=== PATIENT | male | born 1935 | race Caucasian/White ===

== ENCOUNTER 2018-02-21 05:53 | Day surgery (SDC) | payer OTHER ==
--- NOTE | 2018-02-14 09:56 | RAD REPORT ---
EXAM DESCRIPTION: RAD - Chest Pa And Lat (2 Views) - 02/14/2018 9:48 am CLINICAL HISTORY: preop Chest pain. COMPARISON: Abdomen 1 View (KUB) dated 05/22/2017; Abdomen 1 View (KUB) dated 05/09/2017; Abdomen 1 V iew (KUB) dated 04/10/2017; Abdomen 1 View (KUB) dated 01/19/2017 FINDINGS: The lungs are clear. The heart is upper limit of normal in size. No displaced fractures. A ortic atherosclerosis. IMPRESSION: No acute or concerning finding suspected.
[2018-02-14 10:19] LABS: Absolute Lymphocytes (CBC) 2.1 K/uL (0.7-4.9); Absolute Monocytes 0.7 K/uL (0.1-1.3); Absolute Neutrophil 4.1 K/uL (1.8-8.0); Basophils % 1.5 % (0-1.3); Eosinophils % 2.9 % (0-4.4); Hematocrit 41.8 % (39.6-49.0); Lymphocytes % 29.3 % (15.3-44.8); MCH 33.4 pg (27.0-35.0); MCV 93.3 fL (80-100); MPV 9.4 fL (7.6-11.3); Monocytes % 9.6 % (3.3-12.3); RBC Red Blood Cell Count 4.48 M/uL (4.33-5.43)
[2018-02-14 10:25] LABS: Protime INR 1.02
[2018-02-14 10:28] LABS: Potassium 4.1 mmol/L (3.5-5.1)
--- NOTE | 2018-02-14 12:09 | EKG ---
Test Date: 2018-02-14 Test Time: 09:55:32 Tobacco Sweeper: BARTOLOME MEASUREMENT RESULTS: Intervals: Rate: 56 TN: 184 QRSD: 158 QT: 462 QTc: 445 [place]: P: 54 TN: 184 QRS: 6 T: 31 INTERPRETIVE STATEMENTS: Sinus bradycardia Right bundle branch block Abnormal ECG Compared to ECG 05/05/2017 09:12:50 No significant changes Electronically Signed On 02-14-18 12:08:24 CDT by Geovani Greenfield
--- OUTSIDE RECORDS SUMMARY | 2018-02-21 05:58 | XMS REPORT ---
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
--- OUTSIDE RECORDS SUMMARY | 2018-02-21 05:58 | XMS REPORT ---
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 94935259980 25 MG/2.5GM Active 2 applications (1%) to skin in the Transdermal morning Once a day Levothyroxine [facility] 17308971749 75 MCG Orally Active 1 tablet on an Sodium Once a day empty stomach in the morning Candesartan [facility] 94924523641 16 MG Orally Active 1 tablet Cilexetil Once a day Montelukast [facility] 94667915445 10 MG Orally Active 1 tablet Sodium Once a day Zora Allergy [facility] 04860583579 180 MG Orally Active 1 tablet as Once a day needed Aspirin [address] [facility] 83291192567 81 MG Orally Active 1 tablet Once a day Results No Known Results Summary Purpose eClinicalWorks Submission
--- OUTSIDE RECORDS SUMMARY | 2018-02-21 05:58 | XMS REPORT ---
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
--- OUTSIDE RECORDS SUMMARY | 2018-02-21 05:58 | XMS REPORT ---
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
[2018-02-21] MEDS ORDERED: Ringers Lactate 1,000 ML IV ONE ×2 (06:22→07:04)
[2018-02-21] MEDS ORDERED: CEFAZOLIN/SWI 1gm 1 GM/10 ML SYR ONE ×2 (06:23→09:26)
[2018-02-21] MEDS ORDERED: ROPLVACAINE HCL 40 ML ONE (06:40)
[2018-02-21] MEDS ORDERED: MIDAZOLAM HCL 2 MG/2 ML INJ ONE (06:41)
[2018-02-21] MEDS ORDERED: DEXAMETHASONE 4 MG/ML VIAL ONE (06:41)
[2018-02-21] MEDS ORDERED: FENTANYL CITR 100 MCG/2 ML ONE (06:41)
[2018-02-21] MEDS ORDERED: EPINEPHRINE/PF 1 MG/ML AMP ONE (07:03)
[2018-02-21] MEDS ORDERED: PROPOFOL 200 MG/20 ML VIAL IV ONE (07:43)
[2018-02-21] MEDS ORDERED: LIDOCAINE 2% MPF 5 ML VIAL ONE (07:43)
[2018-02-21] MEDS ORDERED: ROCURONIUM 50 MG/5 ML VIAL IV ONE (07:43)
[2018-02-21] MEDS ORDERED: EPHEDRINE SULF 50 MG/10 ML SYR ONE (09:45)
[2018-02-21] MEDS ORDERED: Phenylephrine HCl 10 MG/ML 1 ML VIAL ONE ×2 (09:49→10:38)
[2018-02-21] MEDS ORDERED: NS 0.9% VIAL 10 ML ONE (09:50)
[2018-02-21] MEDS ORDERED: GLYCOPYRROLATE 0.2 MG/ML SYR ONE (10:38)
[2018-02-21] MEDS ORDERED: NEOSTIGMINE 1 MG/ML -5 ML SYRINGE ONE (10:38)
--- NOTE | 2018-02-21 16:39 | RAD REPORT ---
EXAM DESCRIPTION: RAD - Shoulder 1 View - 02/21/2018 11:55 am CLINICAL HISTORY: Shoulder pain, postop imaging COMPARISON: Shoulder Rt Wo Cont dated 12/07/2017 FINDINGS: Mild AC joint degenerative changes present. No fracture or dislocation is seen. Mild delto id soft tissue swelling.
--- NOTE | 2018-02-21 22:47 | OP ---
Date of Procedure: 02/21/2018 Surgeon: Fernando Briggs MD Preoperative Diagnoses: 1.Right shoulder rotator cuff tear. 2.Right shoulder impingement syndrome. Postoperative Diagnoses: 1.Right shoulder rotator cuff tear. 2.Right shoulder impingement syndrome. 3.Right shoulder superior labrum anterior and posterior tear. Procedures Performed: 1.Right shoulder arthroscopic rotator cuff repair. 2.Right shoulder arthroscopic superior labrum anterior and posterior debridement with biceps tenotom y. 3.Right shoulder arthroscopic subacromial decompression. Anesthesia: General endotracheal. Fluids: Per Anesthesia record. Estimated Blood Loss: Less than 10 cc. Complications: None. Implants: A 4.75 mm Arthrex SwiveLock. Indication For Procedure: Juan is an 82-year-old male who presented to my clinic with pain in his right shoulder, and failed conservative treatment measures including corticosteroid injections. Phys ical exam findings and MRI findings were consistent with a rotator cuff tear and impingement syndrome . I discussed with the patient at length, risks and benefits associated with operative and nonoperat alma treatment, and he expressed understanding and elected to proceed with operative treatment. Description Of Procedure: After informed consent was obtained, the patient was identified in the pre operative holding area. The right upper extremity was marked. The patient was then brought back to the PACU where he underwent an interscalene block performed by Anesthesia, which he tolerated well. He was then taken back to the operative room, transferred to the operative table in supine fashion an d placed under general endotracheal anesthesia. He was then placed in the beach chair position with the extremities well padded. The right upper extremity was then examined. The patient had full rang e of motion and no instability noted of the shoulder joint. The right upper extremity was then prepp ed and draped in usual sterile fashion. A time-out was initiated and correct patient and procedure w ere confirmed and identified. The patient did receive his preoperative prophylactic antibiotics. Vi a the posterior portal position, a spinal needle was introduced into the right glenohumeral joint, an d the shoulder was injected with 30 cc of normal saline to distend the capsule. The posterior portal was then created and the arthroscope was brought in from the posterior portal into position and a di agnostic arthroscopy was performed. Standard anterior portal was placed and a cannula was placed as well. The patient was noted to have a type 2 SLAP tear with a superior labrum elevated off the gleno id. Arthroscopic shaver was then used to debride the SLAP tear and biceps tenotomy was performed usi ng a meniscal biter. The subscapularis was evaluated and found to be intact and was able to probe. Anterior and posterior labrum were also found to be intact. There were no significant degenerative c hanges of the humeral head or the glenoid. No loose bodies found within the axillary pouch. The pat ient was noted to have some fraying on the articular surface of his supraspinatus tendon. A lateral portal was created and there was a very small tear with communication to the bursal surface, which wa s evidenced by passage of blunt obturator through the tendon. It was marked coming from the arthrosc ope. The arthroscope was brought into subacromial space. There was significant fraying of the corac oacromial ligament and inferior osteophytes centered off the undersurface of the acromion. A subacro mial bursectomy was first performed. The area that was marked prior was identified on the bursal susan face and it was debrided with a very small full-thickness tear was noted. A FiberTape suture was the n passed in an inverted mattress fashion using a scorpion suture passer and a single lateral anchor w as placed fasting the suture through the anchor for overall good fixation of the rotator cuff on the greater tuberosity. This was done after the greater tuberosity was debrided of any nonviable tissue, debrided to bleeding bony bed to aid with healing. After the anchor was placed, there was good redu ction of the tendon. Next, attention was taken to the undersurface of the acromion. A subacromial d ecompression was then performed using a radiofrequency ablator as well as an arthroscopic keo. Acro mioplasty was performed using the keo, and this smoothed out the acromion and continue to the level of the spine of the scapula. The arthroscopic instruments were then removed without complication and the wounds were then irrigated with normal saline and approximated with a 2-0 Vicryl subcutaneously and the portals were approximated using a 3-0 Monocryl. Sterile dressings were applied. The patient was placed in a shoulder immobilizer, awakened, and transferred to PACU in stable condition. Postoperative Plan: He will follow up in the clinic next week for wound check. He will be nonweight bearing, and he will follow the small rotator cuff repair protocol 2 weeks postoperatively. JULIO CESAR/ZOË Voice ID: [id number] Report ID: [id number]
== END 2018-02-21 12:10 | disposition home or self-care (01) ==
LOC: OR 05:53
PROVIDERS: ATTEND Orthopaedic Surgery Sports Medicine
PROC: 0RNJ4ZZ Release Right Shoulder Joint, Percutaneous Endoscopic Approach (ICD-10-PCS; 2018-02-21)
PROC: 0RBJ4ZZ Excision of Right Shoulder Joint, Percutaneous Endoscopic Approach (ICD-10-PCS; 2018-02-21)
PROC: 0LQ14ZZ Repair Right Shoulder Tendon, Percutaneous Endoscopic Approach (ICD-10-PCS; principal; 2018-02-21 07:30)
DX: M75.121 Complete rotator cuff tear or rupture of right shoulder, not specified as traumatic (principal); S43.431A Superior glenoid labrum lesion of right shoulder, initial encounter; M75.21 Bicipital tendinitis, right shoulder; M75.41 Impingement syndrome of right shoulder; I10 Essential (primary) hypertension; E03.9 Hypothyroidism, unspecified; Z88.2 Allergy status to sulfonamides; Z79.82 Long term (current) use of aspirin; Z80.9 Family history of malignant neoplasm, unspecified; Z83.3 Family history of diabetes mellitus
CPT/HCPCS: 29822; 29826; 29827; 36415; 71046; 73020; 80048; 85025; 85610; 85730; 93005; J0171; J0690 ×2; J2250; J2370 ×2; J2710; J2795; J3010

== ENCOUNTER 2018-03-29 08:59 | Emergency (ER) | payer OTHER ==
--- OUTSIDE RECORDS SUMMARY | 2018-03-29 09:02 | XMS REPORT ---
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 Active Medications Medication Code Code Instructions Start End Status Dosage System Date Date [place] [facility] 71779406359 7.5-325 MG Sept Active 1-2 tablets as Orally every 12, needed 4-6 hrs 2017 Movantik [facility] 24974885846 12.5 MG Orally Sept Oct Active 1 tablet in Once a day 17, 17, the morning 2017 2017 Candesartan [facility] 91206509196 16 MG Orally Active 1 tablet Cilexetil Once a day Levothyroxine [place] 71055240222 75 MCG Orally Active 1 tablet on an Sodium Once a day empty stomach in the morning Montelukast ND 60963158165 10 MG Orally Active 1 tablet Sodium Once a day Zora Allergy [facility] 49297634027 180 MG Orally Active 1 tablet as Once a day needed AndroGel [facility] 68491620591 25 MG/2.5GM Active 2 applications (1%) to skin in the Transdermal morning Once a day Aspirin 81 [facility] 53111234745 81 MG Orally Active 1 tablet Once a day Results No Known Results Summary Purpose eClinicalWorks Submission
--- OUTSIDE RECORDS SUMMARY | 2018-03-29 09:02 | XMS REPORT ---
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
--- OUTSIDE RECORDS SUMMARY | 2018-03-29 09:02 | XMS REPORT ---
:1935 Author Organization eClinicalWorks Care Team Providers Name Role Phone Briggs, Fernando Provider Role Unavailable Allergies No Known Allergies Problems Problem Type Condition Code Onset Dates Condition Status Problem Complete tear of right rotator cuff M75.121 Active Medications Medication Code System Code Instructions Start End Date Status Dosage Date [facility] 85482214549 7.5-325 MG Feb 14, Active 1-2 tablets Orally every 4-6 2017 as needed hrs Results No Known Results Summary Purpose eClinicalWorks Submission
--- OUTSIDE RECORDS SUMMARY | 2018-03-29 09:02 | XMS REPORT ---
[...] Start End Status Dosage System Date Date Zora Allergy [facility] 65630896521 180 MG Orally Active 1 tablet as Once a day needed Movantik ND 91097981388 12.5 MG Orally Sept Oct Active 1 tablet in Once a day 17, 17, the morning 2017 2017 Levothyroxine ND 72762749595 75 MCG Orally Active 1 tablet on an Sodium Once a day empty stomach in the morning Candesartan ND 33941167231 16 MG Orally Active 1 tablet Cilexetil Once a day Montelukast ND 40547215428 10 MG Orally Active 1 tablet Sodium Once a day AndroGel [facility] 43472559584 25 MG/2.5GM Active 2 applications (1%) to skin in the Transdermal morning Once a day [place] [facility] 59407020423 7.5-325 MG Sept Active 1-2 tablets as Orally every 12, needed 4-6 hrs 2017 Aspirin 81 [place] 03559494626 81 MG Orally Active 1 tablet Once a day Results Name Result Date Reference Range Unit Abnormality Flag Physical Therapy Summary Purpose eClinicalWorks Submission
--- OUTSIDE RECORDS SUMMARY | 2018-03-29 09:02 | XMS REPORT ---
[...] End Status Dosage System Date Date AndroGel [facility] 56214530300 25 MG/2.5GM Active 2 applications (1%) to skin in the Transdermal morning Once a day Levothyroxine [facility] 07375012931 75 MCG Orally Active 1 tablet on an Sodium Once a day empty stomach in the morning Candesartan [facility] 24725537897 16 MG Orally Active 1 tablet Cilexetil Once a day Montelukast [facility] 00811838936 10 MG Orally Active 1 tablet Sodium Once a day Zora Allergy [facility] 90166003672 180 MG Orally Active 1 tablet as Once a day needed Aspirin 81 [facility] 29414131746 81 MG Orally Active 1 tablet Once a day Results No Known Results Summary Purpose eClinicalWorks Submission
[2018-03-29 09:54] LABS: Absolute Monocytes 1.1 K/uL (0.1-1.3); Absolute Neutrophil 8.1 K/uL (1.8-8.0); Basophils % 0.7 % (0-1.3); Eosinophils % 1.3 % (0-4.4); Lymphocytes % 17.6 % (15.3-44.8); MCH 31.6 pg (27.0-35.0); MPV 9.2 fL (7.6-11.3); Monocytes % 9.9 % (3.3-12.3); RBC Red Blood Cell Count 4.84 M/uL (4.33-5.43)
[2018-03-29 10:00] LABS: Bilirubin Direct 0.2 mg/dL (0-0.2); Bilirubin Total 0.6 mg/dL (0.2-1.0); Protein, Total 7.9 g/dL (6.4-8.2)
[2018-03-29 10:13] LABS: Urine Blood TRACE (NEG); Urine Glucose NEGATIVE (NEG); Urine Protein NEGATIVE (NEG); Urine pH 5.5 (5.0-7.0)
[2018-03-29 10:13] LABS: Urine Bacteria NONE SEEN /HPF (NONE SEEN); Urine Culture Reflex Order NOT NEEDED
--- NOTE | 2018-03-29 11:59 | RAD REPORT ---
EXAM DESCRIPTION: CT - Chest For Pe Angio - 03/29/2018 11:41 am CLINICAL HISTORY: Chest pain, abdominal pain, shortness of breath, left-sided pain COMPARISON: Two-view chest exam February 14, 2018, lung base images from CT abdomen March 2017 TECHNIQUE: Dynamically enhanced 3 mm thick images of the chest were obtained during administration o f approximately 150mL Isovue 370 IV contrast. Coronal and oblique MIP reconstruction images were gene rated and reviewed. Exam utilizes a protocol to evaluate the pulmonary arterial tree. All CT scans are performed using dose optimization technique as appropriate and may include automated exposure control or mA/KV adjustment according to patient size. FINDINGS: No pulmonary emboli are identified. The aorta as imaged shows no acute or suspicious finding. No pericardial thickening or effusion. No focal mass or consolidation. Interstitial markings in each base are increased above the 2017 study . This is in part due to atelectasis. Minimal interstitial edema or infiltrate would be consideration . No pleural effusion or pleural thickening. Hilar granulomatous calcifications are present. No suspicious mediastinal or hilar mass. No chest wal l masses or abnormal axillary lymphadenopathy. IMPRESSION: No pulmonary emboli identified. Prominent interstitial markings in each posterior gutter new or progressive from 2017 imaging. In the acute setting this could be interstitial edema or infiltrate. Progressive fibrosis would be possible .
--- NOTE | 2018-03-29 12:04 | RAD REPORT ---
EXAM DESCRIPTION: CT - Abdomen Pelvis W Contrast - 03/29/2018 11:39 am CLINICAL HISTORY: Abdominal pain, left-sided abdominal and pelvic pain, no dysuria symptoms COMPARISON: CT imaging October 2014, CT imaging March 2017 TECHNIQUE: Biphasic, helical CT imaging of the abdomen and pelvis was performed following 100 ml non -ionic IV contrast. Oral contrast was given. All CT scans are performed using dose optimization technique as appropriate and may include automated exposure control or mA/KV adjustment according to patient size. FINDINGS: Prominent lung base markings detailed on separate CT chest report. The liver, spleen, and pancreas show no suspicious findings. Gallbladder size is normal. Multiple sma ll gallstones are present layering in the dependent portion of the gallbladder. These have been previ ously seen. No biliary tree dilatation. No active gallbladder process suspected. Symmetric renal function is seen with no hydronephrosis or suspicious renal mass. No pyelonephritis o r acute renal parenchymal process. A 3.4 centimeter anterior left renal cyst and a 4.3 centimeter pos terior left renal cyst present. Both have enlarged slightly when comparing back to 2014. No gastric dilatation or gastric wall thickening. No acute small bowel finding. The appendix is wilbur l. From cecum through proximal descending colon no acute findings seen. In the distal descending colo n there is a mild wall thickening present. There is stranding in the adjacent fat. Patient has extens alma sigmoid diverticulosis. Colon mass is not seen. No free air, abscess or other surgically emergen t component. No mass or bulky lymphadenopathy. No omental thickening. Bilateral fat filled inguinal hernias are pr esent. Partially filled urinary bladder shows no acute finding. Prostate gland is enlarged. There are new calcifications present. No gross evidence for prostate invasion into the bladder. No rectal wall or pelvic side wall invasion. No adrenal abnormality. Disc and bony degenerative changes are present. Surgical changes in the lumbar spine are noted. No ac tive bone process suspected. IMPRESSION: Mild acute diverticulitis in the distal portion of the descending colon left lower quadr ant. Extensive sigmoid diverticulosis without additional site of diverticulitis or colon mass. No abscess, free air or surgically emergent finding. Cholelithiasis similar to prior imaging. No active gallbladder or biliary tree process suspected. Benign left renal cysts enlarged from 2015. No active process seen.
[2018-03-29] MEDS ORDERED: CIPROFLOXACIN 400mg IV 400 MG/200 ML BAG IV ONE (12:31)
[2018-03-29] MEDS ORDERED: METRONIDAZOLE 500mg IVPB 500 MG/100 ML BAG IV ONE (12:31)
--- NOTE | 2018-03-29 13:43 | ER ---
Nurse's Notes [facility] Name: Juan Story Age: 82 yrs Sex: Male : 1935 Arrival Date: 03/29/2018 Time: 09:02 Bed 20 Private MD: Teofilo Hoover T Diagnosis: Diverticulitis of large intestine without perforation or abscess without bleeding Presentation: 03/29 09:06 Presenting complaint: Patient states: i am having left side pain, started about a day tw2 and a half ago, no burning with urination. Transition of care: patient was not received from another setting of care. Onset of symptoms was March 29, 2018. Risk Assessment: Do you want to hurt yourself or someone else? Patient reports no desire to harm self or others. Initial Sepsis Screen: Does the patient meet any 2 criteria? No. Patient's initial sepsis screen is negative. Does the patient have a suspected source of infection? No. Patient's initial sepsis screen is negative. Care prior to arrival: None. 09:06 Method Of Arrival: Ambulatory tw 09:06 Acuity: LANE 3 tw2 Historical: - Allergies: 09:20 Sulfa (Sulfonamide Antibiotics); tw2 09:20 Tihznbo-Cbf-Wqn Reductase Inhibitor; tw2 - Home Meds: 09:20 levothyroxine 75 mcg tab 1 tab once daily [Active]; candesartan 16 mg Oral tab tw2 [Active]; AndroGel 1.62 % (40.5 mg/2.5 gram) transdermal glpk 1 packet once daily [Active]; montelukast 10 mg Oral tab 1 tab once daily [Active]; aspirin 81 mg Oral chew 1 tab once daily [Active]; CoQ-10 100 mg oral cap [Active]; Probiotic 14 billion cfu's oral cap [Active]; glucosamine-chondroitin 1,500-1,200 mg/30 mL oral liqd [Active]; Fish Oil 1,000 mg oral cap [Active]; - PMHx: 09:20 Hyperlipidemia; Hypertension; Hypothyroidism; tw2 - PSHx: 09:20 Knee surgery; spinal sx; Hernia repair; tw2 - Immunization history:: Adult Immunizations. - Social history:: Smoking status: . - Family history:: not pertinent. - Ebola Screening: : Patient denies travel to an Ebola-affected area in the 21 days before illness onset. - Hospitalizations: : No recent hospitalization is reported. Screenin:15 Abuse screen: Denies threats or abuse. Nutritional screening: No deficits noted. tw2 Tuberculosis screening: No symptoms or risk factors identified. Fall Risk None identified. Assessment: 09:22 General: Appears in no apparent distress. Behavior is calm, cooperative, appropriate tw2 for age. Pain: Complains of pain in posterior aspect of left lateral abdomen, left upper quadrant and left lower quadrant. Neuro: Level of Consciousness is awake, alert, obeys commands, Oriented to person, place, time, situation. Cardiovascular: Denies chest pain, shortness of breath, Heart tones S1 S2 Patient's skin is warm and dry. Respiratory: Airway is patent Respiratory effort is even, unlabored, Respiratory pattern is regular, symmetrical, Breath sounds are clear bilaterally. GI: Abdomen is round non-distended, obese, Bowel sounds present X 4 quads. Reports lower abdominal pain, Patient currently denies diarrhea, nausea, vomiting, pt reports last BM yesterday. : No signs and/or symptoms were reported regarding the genitourinary system. Denies burning with urination, urinary frequency. EENT: No signs and/or symptoms were reported regarding the EENT system. Derm: No signs and/or symptoms reported regarding the dermatologic system. Musculoskeletal: Circulation, motion, and sensation intact. Range of motion: intact in all extremities. 10:42 Reassessment: Patient appears in no apparent distress at this time. No changes from tw2 previously documented assessment. Patient and/or family updated on plan of care and expected duration. Pain level reassessed. Patient is alert, oriented x 3, equal unlabored respirations, skin warm/dry/pink. 11:45 Reassessment: Patient appears in no apparent distress at this time. No changes from tw2 previously documented assessment. Patient and/or family updated on plan of care and expected duration. Pain level reassessed. Patient is alert, oriented x 3, equal unlabored respirations, skin warm/dry/pink. 12:53 Reassessment: Patient appears in no apparent distress at this time. No changes from tw2 previously documented assessment. Patient and/or family updated on plan of care and expected duration. Pain level reassessed. Patient is alert, oriented x 3, equal unlabored respirations, skin warm/dry/pink. 13:30 Reassessment: Patient appears in no apparent distress at this time. No changes from tw2 previously documented assessment. Patient and/or family updated on plan of care and expected duration. Pain level reassessed. Patient is alert, oriented x 3, equal unlabored respirations, skin warm/dry/pink. 14:15 Reassessment: Patient appears in no apparent distress at this time. No changes from tw2 previously documented assessment. Patient and/or family updated on plan of care and expected duration. Pain level reassessed. Patient is alert, oriented x 3, equal unlabored respirations, skin warm/dry/pink. Vital Signs: 09:14 BP 158 / 86; Pulse 101; Resp 18; Temp 98.2(TE); Pulse Ox 96% on R/A; Pain 4/10; tw2 09:24 Pulse 95; tw2 10:42 BP 162 / 79; Pulse 89; Resp 17; Pulse Ox 95% on R/A; tw2 11:50 BP 164 / 69; Pulse 73; Resp 17; Pulse Ox 97% on R/A; tw2 12:53 BP 169 / 90; Pulse 73; Resp 17; Pulse Ox 98% on R/A; tw2 14:15 BP 166 / 79; Pulse 77; Resp 16; Pulse Ox 99% on R/A; tw2 ED Course: 09:02 Patient arrived in ED. sb2 09:03 Teofilo Hoover MD is Private Physician. sb2 09:06 Nando Rciketts MD is Attending Physician. rn 09:08 Placed in gown. Bed in low position. Adult w/ patient. Pulse ox on. NIBP on. tw2 09:12 Lindsey Hill, ISAIAH is Primary Nurse. tw2 09:14 Triage completed. tw2 09:15 Arm band placed on. tw2 09:35 Missed attempt(s): 20 gauge in right antecubital area. per Misael,Tech. Missed tw2 attempt(s): 22 gauge in right forearm. per Misael, Tech. Bleeding controlled, band aid applied, catheter tip intact. 09:39 Inserted saline lock: 22 gauge in left forearm, using aseptic technique. Blood tw2 collected. 11:39 CT completed. Patient tolerated procedure well. Patient moved to CT via wheelchair. vr Patient moved back from CT. 11:40 CT Abd/Pelvis - W/Contrast In Process Unspecified. EDMS 11:40 CT Chest For PE Angio In Process Unspecified. EDMS 12:52 Awaiting: completion of IV abx prior to discharge. tw2 14:16 No provider procedures requiring assistance completed. IV discontinued, intact, tw2 bleeding controlled, No redness/swelling at site. Pressure dressing applied. Administered Medications: 12:30 Drug: Flagyl 500 mg Volume: 100 ml; Route: IVPB; Rate: 200 ml/hr; Infused Over: 30 tw2 mins; Site: left forearm; 13:09 Follow up: Response: No adverse reaction; IV Status: Completed infusion tw2 13:10 Drug: Cipro 400 mg Volume: 200 ml; Route: IVPB; Infused Over: 60 mins; Site: left tw2 forearm; 14:15 Follow up: Response: No adverse reaction; IV Status: Completed infusion tw2 Outcome: 12:37 Discharge ordered by . rn 14:16 Discharged to home ambulatory, with significant other. tw2 14:16 Condition: stable 14:16 Discharge instructions given to patient, significant other, Instructed on discharge instructions, follow up and referral plans. Demonstrated understanding of instructions, follow-up care. 14:17 Discharge instructions given to patient, significant other, Instructed on discharge tw2 instructions, follow up and referral plans. medication usage, Demonstrated understanding of Prescriptions given X 3. 14:18 Patient left the ED. tw2 Signatures: Dispatcher [employer] EDNando Olguin MD MD rn Davis, Victoria vr Wise, Tara, RN RN tw2 Ana Lara sb2
--- NOTE | 2018-03-29 13:43 | EDPHYS ---
Physician Documentation [facility] Name: Juan Story Age: 82 yrs Sex: Male : 1935 Arrival Date: 03/29/2018 Time: 09:02 Bed 20 Private MD: Teofilo Hoover T ED Physician Nando Ricketts HPI: 03/29 09:20 This 82 yrs old Male presents to ER via Ambulatory with complaints of Side rn Pain. 09:20 The patient presents with abdominal pain in the left lower quadrant. Onset: The rn symptoms/episode began/occurred yesterday. The symptoms do not radiate. Associated signs and symptoms: none. Pertinent negatives: nausea and vomiting, blood in stools, chest pain, constipation, diarrhea, dysuria, fever, testicular pain, vomiting, vomiting blood. Modifying factors: The symptoms are alleviated by nothing, the symptoms are aggravated by movement, touching the area. Severity of pain: At its worst the pain was mild in the emergency department the pain is unchanged. The patient has experienced a previous episode. The patient has not recently seen a physician. Historical: - Allergies: 09:20 Sulfa (Sulfonamide Antibiotics); tw2 09:20 Bkfmsxd-Cgp-Bdg Reductase Inhibitor; tw2 - Home Meds: 09:20 levothyroxine 75 mcg tab 1 tab once daily [Active]; candesartan 16 mg Oral tab tw2 [Active]; AndroGel 1.62 % (40.5 mg/2.5 gram) transdermal glpk 1 packet once daily [Active]; montelukast 10 mg Oral tab 1 tab once daily [Active]; aspirin 81 mg Oral chew 1 tab once daily [Active]; CoQ-10 100 mg oral cap [Active]; Probiotic 14 billion cfu's oral cap [Active]; glucosamine-chondroitin 1,500-1,200 mg/30 mL oral liqd [Active]; Fish Oil 1,000 mg oral cap [Active]; - PMHx: 09:20 Hyperlipidemia; Hypertension; Hypothyroidism; tw2 - PSHx: 09:20 Knee surgery; spinal sx; Hernia repair; tw2 - Immunization history:: Adult Immunizations. - Social history:: Smoking status: . - Family history:: not pertinent. - Ebola Screening: : Patient denies travel to an Ebola-affected area in the 21 days before illness onset. - Hospitalizations: : No recent hospitalization is reported. ROS: 09:20 Constitutional: Negative for fever, chills, and weight loss, Eyes: Negative for injury, rn pain, redness, and discharge, Cardiovascular: Negative for chest pain, palpitations, and edema, Respiratory: Negative for shortness of breath, cough, wheezing, and pleuritic chest pain, Abdomen/GI: + abd pain, neg for nausea/vomiting/diarrhea MS/Extremity: Negative for injury and deformity, Skin: Negative for injury, rash, and discoloration, Neuro: Negative for headache, weakness, numbness, tingling, and seizure. Exam: 09:20 Constitutional: This is a well developed, well nourished patient who is awake, alert, rn and in no acute distress. Head/Face: Normocephalic, atraumatic. Eyes: Pupils equal round and reactive to light, extra-ocular motions intact. Lids and lashes normal. Conjunctiva and sclera are non-icteric and not injected. Cornea within normal limits. Periorbital areas with no swelling, redness, or edema. Cardiovascular: Regular rate and rhythm. No pulse deficits. Respiratory: Lungs have equal breath sounds bilaterally, clear to auscultation. No increased work of breathing, no retractions or nasal flaring. Abdomen/GI: soft, mild LLQ tenderness, no rebound MS/ Extremity: Pulses equal, no cyanosis. Neurovascular intact. RUE in immobilizer Neuro: Awake and alert, GCS 15, oriented to person, place, time, and situation. Cranial nerves II-XII grossly intact. Motor strength 5/5 in all extremities. Sensory grossly intact. Cerebellar exam normal. Normal gait. Vital Signs: 09:14 BP 158 / 86; Pulse 101; Resp 18; Temp 98.2(TE); Pulse Ox 96% on R/A; Pain 4/10; tw2 09:24 Pulse 95; tw2 10:42 BP 162 / 79; Pulse 89; Resp 17; Pulse Ox 95% on R/A; tw2 11:50 BP 164 / 69; Pulse 73; Resp 17; Pulse Ox 97% on R/A; tw2 12:53 BP 169 / 90; Pulse 73; Resp 17; Pulse Ox 98% on R/A; tw2 14:15 BP 166 / 79; Pulse 77; Resp 16; Pulse Ox 99% on R/A; tw2 MDM: 09:06 Patient medically screened. rn 12:36 Differential diagnosis: diverticulitis, non-specific abd pain, pancreatitis, rn Ureterolithiasis, urinary tract infection. Data reviewed: vital signs, nurses notes, lab test result(s), radiologic studies, CT scan, and as a result, I will discharge patient. Counseling: I had a detailed discussion with the patient and/or guardian regarding: the historical points, exam findings, and any diagnostic results supporting the discharge/admit diagnosis, lab results, radiology results, the need for outpatient follow up, to return to the emergency department if symptoms worsen or persist or if there are any questions or concerns that arise at home. Special discussion: I discussed with the patient/guardian in detail that at this point there is no indication for admission to the hospital. It is understood, however, that if the symptoms persist or worsen the patient needs to return immediately for re-evaluation. 03/29 09:11 Order name: Basic Metabolic Panel; Complete Time: 10: rn 03/29 09:11 Order name: CBC with Diff; Complete Time: 10: rn 03/29 09:11 Order name: Hepatic Function; Complete Time: 10: rn 03/29 09:11 Order name: Lipase; Complete Time: 10: rn 03/29 09:11 Order name: Urine Microscopic Only; Complete Time: 10: rn 03/29 09:54 Order name: Urine Dipstick--Ancillary (enter results); Complete Time: 10:16 eb 03/29 09:11 Order name: IV Saline Lock; Complete Time: : rn 03/29 09:11 Order name: Labs collected and sent; Complete Time: : rn 03/29 09:11 Order name: CT Abd/Pelvis - W/Contrast; Complete Time: 12:12 rn 03/29 10:06 Order name: CT Chest For PE Angio; Complete Time: 12:12 rn Administered Medications: 12:30 Drug: Flagyl 500 mg Volume: 100 ml; Route: IVPB; Rate: 200 ml/hr; Infused Over: 30 tw2 mins; Site: left forearm; 13:09 Follow up: Response: No adverse reaction; IV Status: Completed infusion tw2 13:10 Drug: Cipro 400 mg Volume: 200 ml; Route: IVPB; Infused Over: 60 mins; Site: left tw2 forearm; 14:15 Follow up: Response: No adverse reaction; IV Status: Completed infusion tw2 Disposition: 03/29/18 12:37 Discharged to Home. Impression: Diverticulitis of large intestine without perforation or abscess without bleeding. - Condition is Stable. - Discharge Instructions: High-Fiber Diet, Diverticulitis. - Prescriptions for Flagyl 500 mg Oral Tablet - take 1 tablet by ORAL route every 8 hours for 10 days; 30 tablet. Cipro 500 mg Oral Tablet - take 1 tablet by ORAL route every 12 hours for 10 days; 20 tablet. Zofran ODT 4 mg Oral tablet,disintegrating - place 1 tablet by TRANSLINGUAL route every 8 hours As needed; 20 tablet. - Medication Reconciliation Form, Thank You Letter, Antibiotic Education, Prescription Opioid Use form. - Follow up: Private Physician; When: As needed; Reason: Recheck today's complaints, Re-evaluation by your physician. - Problem is new. - Symptoms have improved. Signatures: Dispatcher [employer] EDMS Nando Ricketts MD MD rn Wise, Tara, RN RN tw2 Corrections: (The following items were deleted from the chart) 14:18 12:37 03/29/2018 12:37 Discharged to Home. Impression: Diverticulitis of large tw2 intestine without perforation or abscess without bleeding. Condition is Stable. Forms are Medication Reconciliation Form, Thank You Letter, Antibiotic Education, Prescription Opioid Use. Follow up: Private Physician; When: As needed; Reason: Recheck today's complaints, Re-evaluation by your physician. Problem is new. Symptoms have improved. rn
== END 2018-03-29 14:18 | disposition home or self-care (01) ==
LOC: ER 08:59
DX: K57.32 Diverticulitis of large intestine without perforation or abscess without bleeding (principal); I10 Essential (primary) hypertension; E03.9 Hypothyroidism, unspecified; E78.5 Hyperlipidemia, unspecified; Z79.82 Long term (current) use of aspirin; Z88.2 Allergy status to sulfonamides; Z88.8 Allergy status to other drugs, medicaments and biological substances
CPT/HCPCS: 36415; 71275; 74177; 80048; 80076; 83690; 85025; 96365; 96367; 99284; J0744; Q9967; 81003; 81015

== ENCOUNTER 2022-08-02 09:35 | Emergency (ER) | payer OTHER ==
--- OUTSIDE RECORDS SUMMARY | 2022-08-02 09:49 | XMS REPORT | Continuity of Care Document ---
:1935 Author Organization [facility] t Address [address] [facility]. [address] [place] [address] Care Team Providers Name Role Phone Teofilo Hoover MD Primary Care Physician [phone] Teofilo Hoover Attending Clinician Unavailable Milagros Goldman MD Attending Clinician Rocco BARRIENTOS, Mai Segura Attending Clinician Kathy Devine Attending Clinician MILAGROS GOLDMAN Admitting Clinician Unavailable Payers Payer Name Policy Type Policy Number Effective Date Expiration Date S tori AETNA MEDICARE C1 [id number] Common Spi rit [facility] Problems Condition Condition Condition Status Onset Resolution Last Treating Co mments Source Name Details Category Date Date Treatment Clinician Date [id number] History of Problem C ommon 107 UTI Spirit [facility] Low Low Problem Common testostero testostero Sp katelyn ne ne [facility] 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 Sp katelyn n n [facility] [id number] Complete Problem Comm on tear of Spirit right - CHI rotator [facility] [id number] Urinary Problem Comm on tract Spirit infection, - CHI site not [facility] [id number] Other Problem Common chronic Spirit pain - [facility] [id number] 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 [facility] Allergies, Adverse Reactions, Alerts Allergy Allergy Status Severity Reaction(s) Onset Inactive Treating Comm ents Source Name Type Date Date Clinician Sulfa Propensi Active Rash Methodi (Sulfona ty to 11-05 st mide adverse 00:00: Hospita Antibiot reaction 00 l ics) s to drug 0 Drug Active Unknown Common allergy [facility] Substan Substan Active Unknown Commo n ce with ce with Spirit 3-hydrox 3-hydrox - CHI y-3-meth y-3-meth St [facility] reductas reductas e e inhibito inhibito r r mechanis mechanis m of m of action action (substan (substan ce) ce) Family History Family Member Diagnosis Comments Start Date Stop Date Source Natural father [facility] Natural mother [facility] Social History Social Habit Start Date Stop Date Quantity Comments Source History of Tobacco Common Spirit - Use [facility] Alcohol intake 2021-11-09 2021-11-09 Lif[facility] 00:00:00 00:00:00 non-drinker Hospital (finding) Cigarettes smoked 2021-11-05 2021-11-[address] current (pack per 00:00:00 00:00:00 Hospita l day) - Reported Cigarette 2021-11-05 2021-11-05 [facility] pack-years 00:00:00 00:00:00 Hospital Tobacco use and 2021-11-05 2021-11-05 Smokeless tobacco [facility] exposure 00:00:00 00:00:00 non-user Hospital Sex Assigned At [birth year] [facility] 00:00:[facility]00 Hospital Smoking Status Start Date Stop Date Source Never Smoker Common Spirit - [facility] Ex-smoker 2021-11-05 00:00:00 2021-11-05 00:00:00 [facility] Medications Ordered Filled Start Stop Current Ordering Indication Dosage Frequency Signature Comments Components Source Medication Medication Date Date Medication? Clinician (SIG) Name Name Bupivicaine Bupivicaine No 2.5mg [place] Spirit 00:00: - [facility] Kenalog Kenalog No 40mg Common (Triamcinol (Triamcinol 06-08 S pirit one) one) 00:00: - [facility] AndroGel 25 AndroGel 25 No QD AndroGel MG/2.5GM MG/2.5GM 01-10 25 (1%) (1%) 00:00: MG/2.5GM 00 (1%) AndroGel 25 AndroGel 25 No QD AndroGel MG/2.5GM MG/2.5GM 01-10 25 (1%) (1%) 00:00: MG/2.5GM 00 (1%) AndroGel 25 AndroGel 25 No QD AndroGel MG/2.5GM MG/2.5GM 01-10 25 (1%) (1%) 00:00: MG/2.5GM 00 (1%) AndroGel 25 AndroGel 25 No QD AndroGel MG/2.5GM MG/2.5GM 01-10 25 (1%) (1%) 00:00: MG/2.5GM 00 (1%) AndroGel 25 AndroGel 25 No QD AndroGel MG/2.5GM MG/2.5GM 01-10 25 (1%) (1%) 00:00: MG/2.5GM 00 (1%) doxazosin Yes doxazosin Met hodi (CARDURA) 2 - [address] MG tablet 16:47: tablet Hospit a 18 l fluticasone Yes fluticason Methodi propionate [address] (FLONASE) 16:47: propionate Ho spita 50 18 50 l mcg/actuati mcg/actuat on nasal ion nasal spray spray,susp ension fluticasone Yes 1{puff} 1 puff. Methodi -umeclidin- 11-08 st vilanter 16:47: Hospita (Trelegy 18 l Ellipta) 100-62.5-25 mcg blister with device powder for inhalation ketoconazol Yes ketoconazo Methodi e (NIZORAL) 11-08 le 2 % st 2 % shampoo 16:47: shampoo Hos velia 18 l metroNIDAZO Yes metronidaz Methodi LE 11-08 ole 0[address]75 % st (METROGEL) 16:47: topical Hosp marlene 0.75 % gel 18 gel l coenzyme Yes 1 capsule Meth abimbola Q10 200 mg 11-[address] capsule 16:47: meal Hospita 18 Orally l Once a day candesartan Yes 32mg QD Take 32 mg Methodi (ATACAND) 11-[address] 32 MG 16:47: daily. Hospita tablet 18 l docusate 2021- No 100mg Q.5D Take 1 Metho di sodium 11-08 07-[address] (Colace) 00:00: 04:59 (100 mg Hospi ta 100 MG 00 :00 total) by l capsule mouth 2 (two) times a day for 30 days. acetaminoph 2021- [place] [id number] 1{tbl} Q6H Take 1-2 Methodi en-codeine 11-08 06-[address] (TYLENOL 00:00: 04:59 mouth Hospita WITH 00 :00 every 6 l CODEINE #3) (six) 300-30 mg hours as per tablet needed for severe pain for up to 30 doses .acute pain. tamsulosin Yes .4mg Q.5D Take 0.4 Met hodi (FLOMAX) 5-[address] 0.4 mg 00:00: mouth 2 Hospita capsule 00 (two) l times a day. levothyroxi Yes 75ug QD Take 75 Met hodi ne 4-[address] (SYNTHROID) 00:00: mouth Hospi ta 75 mcg 00 every l tablet morning. Restasis Yes 1[drp] Q.5D Administer M ethodi 0.05 % 08-[address] ophthalmic 00:00: both eyes Ho spita emulsion 00 2 (two) l times a day. testosteron 2020-06 Yes 2 Method i e 07-[address] (ANDROGEL) 00:00: ns to skin H ospita 1 % (25 00 in the l mg/2.5gram) morning gel in packet AndroGel 25 AndroGel 25 2020-06 No QD AndroGel MG/2.5GM MG/2.5GM 07-04 25 (1%) (1%) 00:00: MG/2.5GM 00 (1%) Sildenafil Sildenafil 2021- No 1{table Sildenafil Citrate 100 Citrate 100 11-09 t_as_ne Citrate MG MG 00:00: 00:00 eded} 100 MG 00 :00 Tadalafil Tadalafil 2021- No 1{table Tadalafil 20 MG 20 MG 07-13 t} 20 MG 00:00: 00:00 00 :00 Movantik Movantik 0 2018- No Fernando 1 tablet Common 9-17 10-17 [place] in the Spirit 00:00: 00:00 morning - CHI 00 :00 [facility] [place] Yes Fernando 1-2 Common 9-12 Briggs tablets as Spirit 00:00: needed - CHI 00 [facility] cyanocobala 2016-06 Yes DAILY Metho di min 0-27 st (VITAMIN 00:00: Hospita B-12) 1000 00 l MCG tablet montelukast 2016-06 Yes DAILY Metho di (SINGULAIR) 0-27 st 10 mg 00:00: Hospita tablet 00 l saw 2016-06 Yes DAILY Methodi palmetto 0-27 st 450 mg 00:00: Hospita capsule 00 l Zora Zora Yes Fernando 1 tablet Co mmon Allergy Allergy Briggs as needed Spir it - CHI [facility] Levothyroxi Levothyroxi Yes Fernando 1 tablet Common ne Sodium ne Sodium Briggs on an Spir it empty - CHI stomach in [facility] Candesartan Candesartan Yes Fernando 1 tablet Common Cilexetil Cilexetil Briggs Spiri t - CHI [facility] Montelukast Montelukast Yes Fernando 1 tablet Common Sodium Sodium Briggs Spirit - [facility] AndroGel AndroGel Yes Fernando 2 Comm on Briggs applicatio Spirit ns to skin - CHI in the [facility] Aspirin 81 Aspirin 81 Yes Fernando 1 tablet Common Briggs Spirit - [facility] [place] 3 [place] 3 No [place] 3 Mucinex 600 Mucinex 600 No 1{table BID Mucinex MG MG t_as_ne 600 MG eded} Aspirin 81 Aspirin 81 No 1{table QD Aspirin 81 81 MG 81 MG t} 81 MG Montelukast Montelukast No 1{table QD Montelukas Sodium 10 Sodium 10 t} t Sodium MG MG 10 MG Flonase Flonase No 1{spray QD Flonase Allergy Allergy _in_eac Allergy Relief 50 Relief 50 h_nostr Relief 50 MCG/ACT MCG/ACT il} MCG/ACT Aspirin 81 Aspirin 81 No 1{table QD Aspirin 81 81 MG 81 MG t} 81 MG Trelegy Trelegy No 1{puff} Trelegy Ellipta Ellipta Ellipta 100-62.5-25 100-62.5-25 100-62.5-2 MCG/INH MCG/INH 5 MCG/INH CoQ10 200 CoQ10 200 No 1{capsu QD CoQ10 200 MG MG le_with MG _a_meal } Docusate Docusate No Docusate Sodium Sodium Sodium [place] 3 [place] 3 No [place] 3 Aspirin 81 Aspirin 81 No 1{table QD Aspirin 81 81 MG 81 MG t} 81 MG Biotin 5000 Biotin 5000 No 1{capsu QD Biotin 5 MG 5 MG le} 5000 5 MG Zora Zora No 1{table QD Zora Allergy 180 Allergy 180 t_as_ne Allergy MG MG eded} 180 MG Montelukast Montelukast No 1{table QD Montelukas Sodium 10 Sodium 10 t} t Sodium MG MG 10 MG Vitamin B12 Vitamin B12 No 1{table QD Vitamin 1000 MCG 1000 MCG t} B12 1000 MCG Folic Acid Folic Acid No 1{table QD Folic Acid 800 MCG 800 MCG t} 800 MCG Mucinex 600 Mucinex 600 No 1{table BID Mucinex MG MG t_as_ne 600 MG eded} Candesartan Candesartan No 1{table QD Candesarta Cilexetil Cilexetil t} n 16 MG 16 MG Cilexetil 16 MG Glucosa-Cho Glucosa-Cho No Glucosa-Ch ndr-Na ndr-Na ondr-Na Chondr-MSM Chondr-MSM Chondr-MSM Flonase Flonase No 1{spray QD Flonase Allergy Allergy _in_eac Allergy Relief 50 Relief 50 h_nostr Relief 50 MCG/ACT MCG/ACT il} MCG/ACT Levothyroxi Levothyroxi No QD Levothyrox ne Sodium ne Sodium ine Sodium 75 MCG 75 MCG 75 MCG Candesartan Candesartan No 1{table QD Candesarta Cilexetil Cilexetil t} n 16 MG 16 MG Cilexetil 16 MG Folic Acid Folic Acid No 1{table QD Folic Acid 800 MCG 800 MCG t} 800 MCG Mucinex 600 Mucinex 600 No 1{table BID Mucinex MG MG t_as_ne 600 MG eded} Aspirin 81 Aspirin 81 No 1{table QD Aspirin 81 81 MG 81 MG t} 81 MG Docusate Docusate No Docusate Sodium Sodium Sodium [place] 3 [place] 3 No [place] 3 CoQ10 200 CoQ10 200 No 1{capsu QD CoQ10 200 MG MG le_with MG _a_meal } Flonase Flonase No 1{spray QD Flonase Allergy Allergy _in_eac Allergy Relief 50 Relief 50 h_nostr Relief 50 MCG/ACT MCG/ACT il} MCG/ACT Aspirin 81 Aspirin 81 No 1{table QD Aspirin 81 81 MG 81 MG t} 81 MG Levothyroxi Levothyroxi No QD Levothyrox ne Sodium ne Sodium ine Sodium 75 MCG 75 MCG 75 MCG Biotin 5000 Biotin 5000 No 1{capsu QD Biotin 5 MG 5 MG le} 5000 5 MG Montelukast Montelukast No 1{table QD Montelukas Sodium 10 Sodium 10 t} t Sodium MG MG 10 MG Glucosa-Cho Glucosa-Cho No Glucosa-Ch ndr-Na ndr-Na ondr-Na Chondr-MSM Chondr-MSM Chondr-MSM Vitamin B12 Vitamin B12 No 1{table QD Vitamin 1000 MCG 1000 MCG t} B12 1000 MCG Trelegy Trelegy No 1{puff} Trelegy Ellipta Ellipta Ellipta 100-62.5-25 100-62.5-25 100-62.5-2 MCG/INH MCG/INH 5 MCG/INH Zora Zora No 1{table QD Zora Allergy 180 Allergy 180 t_as_ne Allergy MG MG eded} 180 MG Aspirin 81 Aspirin 81 No 1{table QD Aspirin 81 81 MG 81 MG t} 81 MG Candesartan Candesartan No 1{table QD Candesarta Cilexetil Cilexetil t} n 16 MG 16 MG Cilexetil 16 MG CoQ10 200 CoQ10 200 No 1{capsu QD CoQ10 200 MG MG le_with MG _a_meal } Aspirin 81 Aspirin 81 No 1{table QD Aspirin 81 81 MG 81 MG t} 81 MG Trelegy Trelegy No 1{puff} Trelegy Ellipta Ellipta Ellipta 100-62.5-25 100-62.5-25 100-62.5-2 MCG/INH MCG/INH 5 MCG/INH Flonase Flonase No 1{spray QD Flonase Allergy Allergy _in_eac Allergy Relief 50 Relief 50 h_nostr Relief 50 MCG/ACT MCG/ACT il} MCG/ACT Mucinex 600 Mucinex 600 No 1{table BID Mucinex MG MG t_as_ne 600 MG eded} Vitamin B12 Vitamin B12 No 1{table QD Vitamin 1000 MCG 1000 MCG t} B12 1000 MCG Biotin 5000 Biotin 5000 No 1{capsu QD Biotin 5 MG 5 MG le} 5000 5 MG [place] 3 [place] 3 No [place] 3 Levothyroxi Levothyroxi No QD Levothyrox ne Sodium ne Sodium ine Sodium 75 MCG 75 MCG 75 MCG Zora Zora No 1{table QD Zora Allergy 180 Allergy 180 t_as_ne Allergy MG MG eded} 180 MG Glucosa-Cho Glucosa-Cho No Glucosa-Ch ndr-Na ndr-Na ondr-Na Chondr-MSM Chondr-MSM Chondr-MSM Montelukast Montelukast No 1{table QD Montelukas Sodium 10 Sodium 10 t} t Sodium MG MG 10 MG Docusate Docusate No Docusate Sodium Sodium Sodium Folic Acid Folic Acid No 1{table QD Folic Acid 800 MCG 800 MCG t} 800 MCG Folic Acid Folic Acid No 1{table QD Folic Acid 800 MCG 800 MCG t} 800 MCG Candesartan Candesartan No 1{table QD Candesarta Cilexetil Cilexetil t} n 16 MG 16 MG Cilexetil 16 MG Aspirin 81 Aspirin 81 No 1{table QD Aspirin 81 81 MG 81 MG t} 81 MG Mucinex 600 Mucinex 600 No 1{table BID Mucinex MG MG t_as_ne 600 MG eded} Trelegy Trelegy No 1{puff} QD Trelegy Ellipta Ellipta Ellipta 100-62.5-25 100-62.5-25 100-62.5-2 MCG/INH MCG/INH 5 MCG/INH Flonase Flonase No 1{spray QD Flonase Allergy Allergy _in_eac Allergy Relief 50 Relief 50 h_nostr Relief 50 MCG/ACT MCG/ACT il} MCG/ACT Biotin 5000 Biotin 5000 No 1{capsu QD Biotin 5 MG 5 MG le} 5000 5 MG Zora Zora No 1{table QD Zora Allergy 180 Allergy 180 t_as_ne Allergy MG MG eded} 180 MG Levothyroxi Levothyroxi No QD Levothyrox ne Sodium ne Sodium ine Sodium 75 MCG 75 MCG 75 MCG Aspirin 81 Aspirin 81 No 1{table QD Aspirin 81 81 MG 81 MG t} 81 MG Vitamin B12 Vitamin B12 No 1{table QD Vitamin 1000 MCG 1000 MCG t} B12 1000 MCG Montelukast Montelukast No 1{table QD Montelukas Sodium 10 Sodium 10 t} t Sodium MG MG 10 MG CoQ10 200 CoQ10 200 No 1{capsu QD CoQ10 200 MG MG le_with MG _a_meal } Candesartan Candesartan No 1{table QD Candesarta Cilexetil Cilexetil t} n 16 MG 16 MG Cilexetil 16 MG Mucinex 600 Mucinex 600 No 1{table BID Mucinex MG MG t_as_ne 600 MG eded} Vitamin B12 Vitamin B12 No 1{table QD Vitamin 1000 MCG 1000 MCG t} B12 1000 MCG Flonase Flonase No 1{spray QD Flonase Allergy Allergy _in_eac Allergy Relief 50 Relief 50 h_nostr Relief 50 MCG/ACT MCG/ACT il} MCG/ACT Aspirin 81 Aspirin 81 No 1{table QD Aspirin 81 81 MG 81 MG t} 81 MG Folic Acid Folic Acid No 1{table QD Folic Acid 800 MCG 800 MCG t} 800 MCG Levothyroxi Levothyroxi No QD Levothyrox ne Sodium ne Sodium ine Sodium 75 MCG 75 MCG 75 MCG Trelegy Trelegy No 1{puff} QD Trelegy Ellipta Ellipta Ellipta 100-62.5-25 100-62.5-25 100-62.5-2 MCG/INH MCG/INH 5 MCG/INH CoQ10 200 CoQ10 200 No 1{capsu QD CoQ10 200 MG MG le_with MG _a_meal } Zora Zora No 1{table QD Zora Allergy 180 Allergy 180 t_as_ne Allergy MG MG eded} 180 MG Aspirin 81 Aspirin 81 No 1{table QD Aspirin 81 81 MG 81 MG t} 81 MG Montelukast Montelukast No 1{table QD Montelukas Sodium 10 Sodium 10 t} t Sodium MG MG 10 MG Biotin 5000 Biotin 5000 No 1{capsu QD Biotin 5 MG 5 MG le} 5000 5 MG Vitamin B12 Vitamin B12 No 1{table QD Vitamin 1000 MCG 1000 MCG t} B12 1000 MCG Aspirin 81 Aspirin 81 No 1{table QD Aspirin 81 81 MG 81 MG t} 81 MG CoQ10 200 CoQ10 200 No 1{capsu QD CoQ10 200 MG MG le_with MG _a_meal } Folic Acid Folic Acid No 1{table QD Folic Acid 800 MCG 800 MCG t} 800 MCG Biotin 5000 Biotin 5000 No 1{capsu QD Biotin 5 MG 5 MG le} 5000 5 MG Candesartan Candesartan No 1{table QD Candesarta Cilexetil Cilexetil t} n 16 MG 16 MG Cilexetil 16 MG Zora Zora No 1{table QD Zora Allergy 180 Allergy 180 t_as_ne Allergy MG MG eded} 180 MG Levothyroxi Levothyroxi No QD Levothyrox ne Sodium ne Sodium ine Sodium 75 MCG 75 MCG 75 MCG Glucosa-Cho Glucosa-Cho No Glucosa-Ch ndr-Na ndr-Na ondr-Na Chondr-MSM Chondr-MSM Chondr-MSM Trelegy Trelegy No 1{puff} QD Trelegy Ellipta Ellipta Ellipta 100-62.5-25 100-62.5-25 100-62.5-2 MCG/INH MCG/INH 5 MCG/INH Docusate Docusate No Docusate Sodium Sodium Sodium Vital Signs Vital Name Observation Time Observation Value Comments Source height 2022-06-08 08:45:00 71 [in_i] Common S pirit - [facility] weight 2022-06-08 08:45:00 247 [lb_av] Common S pirit - [facility] temperature 2022-06-08 08:45:00 98.1 [degF] Common S pirit - [facility] bmi 2022-06-08 08:45:00 34.45 kg/m2 Common S pirit - [facility] blood pressure 2022-06-08 08:45:00 135 mm[Hg] Common Spirit - systolic [facility] blood pressure 2022-06-08 08:45:00 78 mm[Hg] Common Spirit - diastolic [facility] height 2022-04-21 09:30:00 71 [in_i] Common S pirit [facility] weight 2022-04-21 09:30:00 251 [lb_av] Common S pirit [facility] temperature 2022-04-21 09:30:00 97.0 [degF] Common S pirit [facility] bmi 2022-04-21 09:30:00 35 kg/m2 Common S pirit [facility] blood pressure 2022-04-21 09:30:00 137 mm[Hg] Common Spirit - systolic [facility] blood pressure 2022-04-21 09:30:00 75 mm[Hg] Common Spirit - diastolic [facility] height 2022-04-13 10:00:00 71 [in_i] Common S pirit - [facility] weight 2022-04-13 10:00:00 251 [lb_av] Common S pirit [facility] temperature 2022-04-13 10:00:00 98.6 [degF] Common S pirit [facility] bmi 2022-04-13 10:00:00 35 kg/m2 Common S pirit [facility] oximetry 2022-04-13 10:00:00 98 % [facility] S pirit [facility] respiratory rate 2022-04-13 10:00:00 16 /min Comm on Spirit - [facility] blood pressure 2022-04-13 10:00:00 157 mm[Hg] Common Spirit - systolic [facility] blood pressure 2022-04-13 10:00:00 76 mm[Hg] Common Spirit - diastolic [facility] height 2022-03-11 08:30:00 71 [in_i] [facility] weight 2022-03-11 08:30:00 250 [lb_av] Common S pirit [facility] temperature 2022-03-11 08:30:00 97.7 [degF] Common [facility] bmi 2022-03-11 08:30:00 34.86 kg/m2 Common [facility] blood pressure 2022-03-11 08:30:00 138 mm[Hg] Common [facility] - systolic [facility] blood pressure 2022-03-11 08:30:00 84 mm[Hg] Common [facility] - diastolic [facility] height 2022-01-10 13:00:00 71 [in_i] Common S [facility] weight 2022-01-10 13:00:00 248 [lb_av] Common [facility] temperature 2022-01-10 13:00:00 97.8 [degF] Common [facility] bmi 2022-01-10 13:00:00 34.59 kg/m2 [facility] oximetry 2022-01-10 13:00:00 98 % [facility] respiratory rate 2022-01-10 13:00:00 16 /min Comm on [facility] blood pressure 2022-01-10 13:00:00 132 mm[Hg] Common [facility] - systolic [facility] blood pressure 2022-01-10 13:00:00 68 mm[Hg] Common [facility] - diastolic [facility] Systolic blood 2021-11-08 21:15:00 154 mm[Hg] Method ist Hospital pressure Diastolic blood 2021-11-08 21:15:00 72 mm[Hg] [facility] Hospital pressure Heart rate 2021-11-08 21:15:00 64 /min [facility] Respiratory rate 2021-11-08 21:15:00 18 /min [facility] Oxygen saturation in 2021-11-08 21:15:00 99 /min [facility] Arterial blood by Pulse oximetry Body temperature 2021-11-08 20:54:00 36.39 Susan [facility] Body height 2021-11-08 15:04:00 179.1 cm [facility] Body weight 2021-11-08 15:04:00 112.492 kg [facility] BMI 2021-11-08 15:04:00 35.08 kg/m2 [facility] Procedures Procedure Date / Time Performing Clinician Source Performed MI AN ELECTIVE 2021-11-08 17:47:00 Mai Valiente [facility] SUPRAGLOTTIC AIRWAY EXTRACORPOREAL SHOCKWAVE 2021-11-08 17:40:[address] [facility] LITHOTRIPSY (ESWL) POC GLUCOSE 2021-11-08 15:49:00 Milagros Goldman spital URINE CULTURE 2021-11-05 16:10:00 Milagros Goldman spital ECG 12-LEAD 2021-11-05 16:03:55 Kathy Jerez [facility] ospital HEMOGLOBIN A1C 2021-11-05 15:08:00 Kathy Jerez [facility] ospital URINALYSIS SCREEN AND 2021-11-05 15:06:00 Milagros Goldman [facility] MICROSCOPY, WITH REFLEX TO CULTURE CBC WITH PLATELET AND 2021-11-05 15:05:00 Milagros Goldman [facility] DIFFERENTIAL BASIC METABOLIC PANEL 2021-11-05 15:05:00 Milagros Goldman [facility] PROTHROMBIN TIME WITH INR 2021-11-05 15:05:00 Milagros Goldman [facility] PARTIAL THROMBOPLASTIN 2021-11-05 15:05:00 Milagros Goldman [facility] TIME (PTT) ESTIMATED GFR 2021-11-05 15:05:00 Milagros Goldman spital XR TOMOGRAMS 2021-11-04 16:30:38 Milagros Goldman Plan of Care Planned Activity Planned Date Details Comments Source Future Scheduled 2022-08-01 65+ PNEUMOCOCCAL [facility] Test 11:40:33 VACCINE (1 - PCV) [code = 65+ PNEUMOCOCCAL VACCINE (1 - PCV)] Future Scheduled 2022-08-01 SHINGLES VACCINES (2 Met [facility] Test 11:40:33 of 2) [code = SHINGLES VACCINES (2 of 2)] Future Scheduled 2022-08-01 COVID-19 VACCINE (5 - [facility] Test 11:40:33 Booster for Pfizer series) [code = COVID-19 VACCINE (5 - Booster for Pfizer series)] Future Scheduled 2022-08-01 INFLUENZA VACCINE [facility] Test 11:40:33 [code = INFLUENZA VACCINE] Encounters Start End Encounter Admission Attending Care Care Encounter Source Date/Time Date/Time Type Type Clinicians Facility Department ID 2022-06-08 Outpatient Teofilo Hoover [facility] [id number] - Common 10:48:00 [id number] [facility] 2022-03-14 Outpatient Teofilo Hoover [facility] [id number] - Common 14:39:01 [facility] 2022-03-11 Outpatient Teofilo Hoover [facility] [id number] - Common 08:42:01 [facility] 2022-02-23 Outpatient Teofilo Hoover [facility] [id number] - Common 09:13:01 [facility] 2022-01-10 Outpatient Teofilo Hoover [facility] [id number] - Common 13:05:00 [facility] 2021-12-14 Outpatient Teofilo Hoover [facility] [id number] - Common 11:13:00 [facility] 2021-06-30 Outpatient Teofilo Hoover [facility] [id number] - Common 12:25:49 [facility] 2021-06-30 Outpatient Teofilo Hoover [facility] [id number] - Common 12:24:44 [id number] [facility] 2022-06-08 2022-06-08 [facility] [id number] Co mmon 00:00:00 00:00:00 VISIT Spirit ESTAB PT - CHI LEVEL 4 [facility] 2022-04-21 2022-04-21 OFFICE STLMLC STLMLC [id number] Co mmon 00:00:00 00:00:00 VISIT EST Spir it PT LEVEL 3 - CHI [facility] 2022-04-13 2022-04-13 OFFICE STLMLC STLMLC [id number] Co mmon 00:00:00 00:00:00 VISIT Spirit ESTAB PT - CHI LEVEL 2 [facility] 2022-03-11 2022-03-11 OFFICE STLMLC STLMLC [id number] Co mmon 00:00:00 00:00:00 VISIT NEW Spir it PT LEVEL 4 - CHI [facility] 2022-01-10 2022-01-10 OFFICE STLMLC STLMLC [id number] Co mmon 00:00:00 00:00:00 VISIT Spirit ESTAB PT - CHI LEVEL 4 [facility] 2021-11-08 2021-11-08 [facility] Milagros Goldman 1.2.840.1 [id number] Methodi 09:33:00 16:47:00 [place] [id number] [id number] Hospit a .[id number] l .8 2021-11-08 2021-11-08 Anesthesia Mai Valiente A. [id number] Methodi 12:40:00 14:05:00 Event Kathy Jerez [id number] [id number] Hospit a .[id number] l .8 2021-11-08 2021-11-08 Surgery Milagros Goldman 1.2.840.1 [id number] Methodi 12:15:00 13:35:[id number] 3.430.2.7 Hospit a .[id number] l .8 2021-11-08 2021-11-08 Outpatient MILAGROS GOLDMAN [facility] 021 [id number] [place] 00:00:00 00:00:[address] 2021-11-05 2021-11-05 Pre-Admiss Milagros Goldman 1.2.840.1 [id number] Methodi 10:00:00 11:00:00 [place] R [address].1.[address] Testing 3.430.2.7 Hospit a .3.535449 l .8 2021-11-05 2021-11-05 Outpatient [facility] [id number] [place] 00:00:00 00:00:[address] 2021-11-04 2021-11-04 [facility] Milagros Goldman 1.2.840.1 [id number] Methodi 11:00:00 23:59:00 [place] [address] 3.430.2.7 Hospit a .3.476650 l .8 2021-11-04 2021-11-04 Travel 1.2.840.1 [id number] [id number] Methodi 00:00:00 00:00:[address] 3.430.2.7 0.2.7.3.698 Ho spita .3.617188 084.8 l .8 2021-11-04 2021-11-04 Transcribe Milagros Goldman 1.2.840.1 [id number] Methodi 00:00:00 00:00:00 [place] [address].1.[address] 3.430.2.7 Hospit a .3.711923 l .8 2021-11-04 2021-11-04 Outpatient [facility] [id number] [place] 00:00:00 00:00:[address] 2021-05-03 2021-05-03 (TEL) [facility] STLC [id number] [place] 00:00:00 00:00:00 [facility] 2020-11-26 2020-11-26 Outpatient STLMLC STLMLC [id number] Common 00:00:00 00:00:00 [facility] 2020-11-09 2020-11-09 Outpatient STLMLC STLMLC [id number] Common 00:00:00 00:00:00 [facility] 2020-10-27 2020-10-27 Outpatient STLMLC STLMLC [id number] Common 00:00:00 00:00:00 [facility] 2020-10-13 2020-10-13 Outpatient STLMLC STLMLC [id number] Common 00:00:00 00:00:00 [facility] 2020-10-13 2020-10-13 Outpatient STLMLC STLMLC [id number] Common 00:00:00 00:00:00 [facility] 2020-10-13 2020-10-13 Outpatient STLMLC STLMLC [id number] Common 00:00:00 00:00:00 [facility] 2020-07-13 2020-07-13 Outpatient STLMLC STLMLC [id number] Common 00:00:00 00:00:00 [facility] 2020-07-01 2020-07-01 Outpatient STLMLC STLMLC [id number] Common 00:00:00 00:00:00 [facility] 2018-03-12 2018-03-12 [facility] [id number] Common 10:30:00 10:30:00 [facility] 2018-02-26 2018-02-26 [facility] [id number] Common 11:00:00 11:00:00 [facility] 2018-02-19 2018-02-19 [facility] [id number] Common 13:11:00 13:11:00 t [facility] 2018-02-15 2018-02-15 [facility] [id number] Common 15:29:00 15:29:00 t [facility] - [facility] 2018-02-15 2018-02-15 Outpatient Gabo Ayont [id number] Common 09:51:00 09:51:00 t [facility] Bone and Spiri t and Joint [facility] - [facility] 2018-02-14 2018-02-14 Outpatient Gabo Ayont [id number] Common 08:42:00 08:42:00 t [facility] Joint [facility] - [facility] 2018-01-22 2018-01-22 Outpatient Gabo Ayont [id number] Common 11:00:00 11:00:00 t [facility] - [facility] Results Test Description Test Time Test Comments Results Result Comments Source POC glucose 2021-11-08 15:50:00 Test Item Value Reference Range Interpretation Comme nts POC glucose (test code = 91051-8) 97 mg/dL 65-99 [employer] Name: Bereket Mckeon ID: [id number] [facility] [id number] 20:45:39 Test Item Value Reference Range Interpretation Comments Ventricular rate 75 (test code = 253) Atrial rate (test 75 code = 255) MI interval (test 178 code = 266) QRSD interval (test 150 code = 260) QT interval (test 420 code = 264) QTC interval (test 469 code = 265) P axis 1 (test code 59 = 267) QRS axis 1 (test -20 code = 268) T wave axis (test 17 code = 270) EKG impression (test Normal sinus code = 273) rhythm-Nonspecific intraventricular block-No previous ECGs available- [facility] [id number] 17:56:00 Test Item Value Reference Range Interpretation Comments Urine culture (test SEE COMMENT Bacteriu elvia screen code = 4080629) negative. [facility]
[2022-08-02 10:25] LABS: Urine Blood Negative (Negative); Urine Glucose Negative (Negative); Urine Protein Negative (Negative); Urine pH 6.5 (5.0-7.0)
[2022-08-02 10:32] LABS: Urine Bacteria None Seen /HPF (<20); Urine Mucus Slight /HPF (None Seen); Urine RBC <5 /HPF (None Seen)
[2022-08-02 10:33] LABS: Absolute Lymphocytes (CBC) 2.5 K/uL (0.7-4.9); Hematocrit 41.6 % (39.6-49.0); Lymphocytes % 26.4 % (15.3-44.8); MCV 93.3 fL (80-100); RBC Red Blood Cell Count 4.45 M/uL (4.33-5.43)
[2022-08-02 10:48] LABS: Albumin 3.6 g/dL (3.4-5.0); Bilirubin Total 0.4 mg/dL (0.2-1.0); Potassium 4.2 mmol/L (3.5-5.1); Protein, Total 7.6 g/dL (6.4-8.2)
--- NOTE | 2022-08-02 11:17 | RAD REPORT ---
EXAM DESCRIPTION: CT - Abdomen Pelvis Wo Contrast - 08/02/2022 10:48 am CLINICAL HISTORY: ABD PAIN COMPARISON: 09/03/2018 TECHNIQUE: Thin cut axial CT imaging of the abdomen and pelvis was performed without IV contrast. Mu ltiplanar reformats were generated and reviewed. All CT scans are performed using dose optimization technique as appropriate and may include automated exposure control or mA/KV adjustment according to patient size. FINDINGS: No suspicious findings in the lung bases. The liver, spleen, and pancreas show no suspicious findings. The layering small gallstones along the body and neck, stable. No evidence of intra or extrahepatic biliary ductal dilation. Symmetric renal contour, without suspicious parenchymal findings within limits of noncontrast techniq ue. Exophytic hypoattenuating left renal lesions, maintaining fluid density, the largest at the midpo le posteriorly, measuring 5.5 centimeter. These are grossly stable although not well characterized. N o hydroureteronephrosis. Nonobstructing right mid pole 1.2 centimeter calculus. No dilated bowel loops or bowel wall thickening. Colonic diverticulosis. No free air, free fluid or i nflammatory stranding. No suspicious mass or bulky lymphadenopathy. Left inguinal hernia containing f at, stable. The urinary bladder is without significant finding. Prostatomegaly with calcifications. No suspicious bony findings. IMPRESSION: No acute intra-abdominal process. Right renal midpole nonobstructing 1.2 centimeter calculus. Stable incidental findings as above.
--- NOTE | 2022-08-02 11:39 | ER ---
Nurse's Notes [facility] Name: Juan Story Age: 86 yrs Sex: Male : 1935 Arrival Date: 08/02/2022 Time: 09:56 Bed IW2 Private MD: Teofilo Hoover T Diagnosis: Right flank pain;Essential (primary) hypertension Presentation: 08/02 10:17 Chief complaint: Patient states: he has been having "kidney stone" pain for 3 days. ap3 patient states he has a hx of kidney stones, and this is what it feels like each time in the past. Coronavirus screen: At this time, the client does not indicate any symptoms associated with coronavirus-19. Ebola Screen: No symptoms or risks identified at this time. Initial Sepsis Screen: Does the patient meet any 2 criteria? No. Patient's initial sepsis screen is negative. Does the patient have a suspected source of infection? Yes: Dysuria/Frequency/Urgency/UTI. Risk Assessment: Do you want to hurt yourself or someone else? Patient reports no desire to harm self or others. Onset of symptoms was July 30, 2022. 10:17 Method Of Arrival: Ambulatory ap3 10:17 Acuity: LANE 3 ap3 Triage Assessment: 10:19 General: Appears in no apparent distress. Behavior is calm, cooperative. Pain: ap3 Complains of pain in low back area Pain currently is 3 out of 10 on a pain scale. Pain began gradually, 2-3 days ago. Neuro: Level of Consciousness is awake, alert, obeys commands, Oriented to person, place, time, situation, Gait is steady. Cardiovascular: Patient's skin is warm and dry. Respiratory: Airway is patent Respiratory effort is even, unlabored, Respiratory pattern is regular, symmetrical. GI: Patient currently denies. : Reports pain flank(s). Historical: - Allergies: 10:19 Euxpiet-Tmy-Njh Reductase Inhibitor; ap3 10:19 Sulfa (Sulfonamide Antibiotics); ap3 - PMHx: 10:19 Hyperlipidemia; Hypertension; Hypothyroidism; ap3 - Immunization history:: Client reports receiving the 2nd dose of the Covid vaccine. - Social history:: Smoking status: Patient denies any tobacco usage or history of. Screenin:20 [facility] ED Fall Risk Assessment (Adult) History of falling in the last 3 months, ap3 including since admission No falls in past 3 months (0 pts). Abuse screen: Denies threats or abuse. Nutritional screening: No deficits noted. Tuberculosis screening: No symptoms or risk factors identified. Assessment: 11:49 GI: Bowel sounds present X 4 quads. Abd is soft and non tender. ap3 Vital Signs: 10:17 BP 167 / 89; Pulse 94; Resp 18; Temp 98.5; Pulse Ox 98% ; Weight 108.86 kg; ap3 ED Course: 09:56 Patient arrived in ED. am2 09:57 Teofilo Hoover MD is Private Physician. am2 10:02 Aden Vargas DO is Attending Physician. ms3 10:19 Triage completed. ap3 10:20 Arm band placed on right wrist. ap3 10:20 Patient has correct armband on for positive identification. Bed in low position. Call ap3 light in reach. Side rails up X 1. 10:53 CT Abd/Pelvis - Without Contrast In Process Unspecified. EDMS 11:37 Teofilo Hoover MD is Referral Physician. ms3 11:48 No provider procedures requiring assistance completed. IV discontinued, intact, ap3 bleeding controlled, No redness/swelling at site. Pressure dressing applied. Administered Medications: No medications were administered Medication: 11:49 VIS not applicable for this client. ap3 Outcome: 11:38 Discharge ordered by . ms3 11:49 Discharged to home ambulatory. ap3 11:49 Condition: good 11:49 Discharge instructions given to patient, Instructed on discharge instructions, follow up and referral plans. Demonstrated understanding of instructions, follow-up care. 11:49 Patient left the ED. ap3 Signatures: Dispatcher [employer] EDMS Kathy Cannon 2 Kathy Crespo, RN RN ap3 Aden Vargas DO DO ms3
--- NOTE | 2022-08-02 11:39 | EDPHYS ---
Physician Documentation [facility] Name: Juan Story Age: 86 yrs Sex: Male : 1935 Arrival Date: 08/02/2022 Time: 09:56 Bed IW2 Private MD: Teofilo Hoover T ED Physician Aden Vargas HPI: 08/02 10:52 This 86 yrs old Male presents to ER via Ambulatory with complaints of Possible Kidney ms3 Stone. 10:52 86-year-old male with past medical history of hyperlipidemia, hypertension, ms3 hypothyroidism, kidney stones presents for right-sided flank pain that has been ongoing for 2 days. Patient states pain is a 7/10 described as aching. Patient states heat helps his discomfort. Patient denies inciting factors. Patient denies fevers, chills, dysuria, urinary urgency, frequency.. Historical: - Allergies: 10:19 Zbauhld-Kji-Bkm Reductase Inhibitor; ap3 10:19 Sulfa (Sulfonamide Antibiotics); ap3 - PMHx: 10:19 Hyperlipidemia; Hypertension; Hypothyroidism; ap3 - Immunization history:: Client reports receiving the 2nd dose of the Covid vaccine. - Social history:: Smoking status: Patient denies any tobacco usage or history of. ROS: 10:52 Constitutional: Negative for fever, and chills. Neck: Negative for injury, pain, and ms3 swelling, Cardiovascular: Negative for chest pain, and palpitations. Respiratory: Negative for shortness of breath, cough, wheezing, and pleuritic chest pain, Abdomen/GI: Negative for abdominal pain, nausea, vomiting, diarrhea, and constipation. 10:52 Back: Positive for flank pain, on the right. 10:52 All other systems are negative. Exam: 10:52 Constitutional: This is a well developed, well nourished patient who is awake, alert, ms3 and in no acute distress. Head/Face: Normocephalic, atraumatic. Neck: Trachea midline, no cervical lymphadenopathy. Supple, full range of motion without nuchal rigidity, or vertebral point tenderness. No Meningismus. Chest/axilla: Normal chest wall appearance and motion. Nontender with no deformity. Cardiovascular: Regular rate and rhythm with a normal S1 and S2. No gallops, murmurs, or rubs. Normal PMI, no JVD. No pulse deficits. Respiratory: Lungs have equal breath sounds bilaterally, clear to auscultation and percussion. No rales, rhonchi or wheezes noted. No increased work of breathing, no retractions or nasal flaring. Abdomen/GI: Soft, non-tender, with normal bowel sounds. No distension or tympany. No guarding or rebound. No evidence of tenderness throughout. Back: No spinal tenderness. No costovertebral tenderness. Full range of motion. Skin: Warm, dry with normal turgor. Normal color with no rashes, no lesions, and no evidence of cellulitis. MS/ Extremity: Pulses equal, no cyanosis. Neurovascular intact. Full, normal range of motion. Vital Signs: 10:17 BP 167 / 89; Pulse 94; Resp 18; Temp 98.5; Pulse Ox 98% ; Weight 108.86 kg; ap3 MDM: 10:14 Patient medically screened. ms3 10:52 Independent interpretation of the following test(s) in the Emergency Department CT ms3 Scan: My interpretation is CT abdomen pelvis without contrast images reviewed. No right ureteral stone seen.. 10:52 Differential diagnosis: nephrolithiasis, pyelonephritis, UTI. ms3 11:39 Data reviewed: vital signs, nurses notes, lab test result(s), radiologic studies, CT ms3 scan, and as a result, I will discharge patient. Counseling: I had a detailed discussion with the patient and/or guardian regarding: the historical points, exam findings, and any diagnostic results supporting the discharge/admit diagnosis, lab results, radiology results, the need for outpatient follow up, to return to the emergency department if symptoms worsen or persist or if there are any questions or concerns that arise at home. ED course: Discussed labs, imaging, physical exam findings with patient. Patient to follow-up with his primary care physician in 2 to 3 days. Patient understands and agrees with plan. All questions were answered. Return precautions discussed include worsening symptoms, or any other concerns. On reevaluation patient is alert and oriented x4, no apparent distress, nontoxic, ambulatory in right department, speaking full sentences.. 08/02 10:16 Order name: CBC with Diff; Complete Time: 10:51 ms3 08/02 10:16 Order name: CMP; Complete Time: 10: ms3 08/02 10:16 Order name: Urine Microscopic Only; Complete Time: 10:51 ms3 08/02 10:16 Order name: CT Abd/Pelvis - Without Contrast; Complete Time: 11:32 ms3 08/02 10:16 Order name: IV Saline Lock; Complete Time: 10:28 ms3 08/02 10:16 Order name: Labs collected and sent; Complete Time: 10:28 ms3 08/02 10:16 Order name: Urine Dipstick-Ancillary (obtain specimen); Complete Time: 10:28 ms3 08/02 10:25 Order name: Urine Dipstick-Ancillary; Complete Time: 10:51 EDMS Administered Medications: No medications were administered Disposition Summary: 08/02/22 11:38 Discharge Ordered Location: Home ms3 Condition: Stable ms3 Diagnosis - Right flank pain ms3 - Essential (primary) hypertension ms3 Followup: ms3 - With: Teofilo Hoover MD - When: 2 - 3 days - Reason: Recheck today's complaints Discharge Instructions: - Discharge Summary Sheet ms3 - Flank Pain, Adult ms3 Forms: - Medication Reconciliation Form ms3 - Thank You Letter ms3 - Antibiotic Education ms3 - Prescription Opioid Use ms3 Signatures: Dispatcher [employer] Kathy Vilchis RN RN ap3 Aden Vargas DO DO ms3
[2022-08-02 11:54] VITALS: BP 167/89; TEMP 98.5; O2SAT 98
== END 2022-08-02 11:49 | disposition home or self-care (01) ==
LOC: ER 09:35
DX: R10.9 Unspecified abdominal pain (principal); I10 Essential (primary) hypertension; Z87.442 Personal history of urinary calculi; Z88.2 Allergy status to sulfonamides; Z88.8 Allergy status to other drugs, medicaments and biological substances
CPT/HCPCS: 36415; 74176; 80053; 81003; 81015; 85025; 99283

== ENCOUNTER 2023-01-29 08:14 | Emergency (ER) | payer OTHER ==
--- OUTSIDE RECORDS SUMMARY | 2023-01-29 08:18 | XMS REPORT | Continuity of Care Document ---
:1935 Author Organization [facility] t Address [address] [place] [address]. [address] [place] [address] Care Team Providers Name Role Phone Teofilo Hoover Primary Care Physician Teofilo Hoover Attending Clinician Unavailable KAMLA GIVENS Attending Clinician Unavailable Brent Herrera MD Attending Clinician Lab, Ang - Db Attending Clinician Unavailable BRENT HERRERA Attending Clinician Unavailable BRENT HERRERA Attending Clinician Unavailable Doctor Unassigned, [place] Attending Clinician Unavailable Milagros Goldman MD Attending Clinician Mai Valiente MD Attending Clinician Kathy Devine Attending Clinician MILAGROS GOLDMAN Admitting Clinician Unavailable Payers Payer Name Policy Type Policy Number Effective Date Expiration Date S ource AETNA MEDICARE C1 [id number] Common Spi [facility] Problems Condition Condition Condition Status Onset Resolution Last Treating Co mments Source Name Details Category Date Date Treatment Clinician Date [id number] History of Problem C ommon 107 UTI Spirit [facility] Low Low Problem Common testostero testostero Sp katelyn ne [facility] 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 Sp katelyn n n - CHI [facility] [id number] Complete Problem Comm on tear of Spirit right - CHI rotator cuff [facility] [id number] Urinary Problem Comm on tract Spirit infection, - CHI site not [facility] [id number] Other Problem Common chronic Spirit pain - CHI [facility] [id number] 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 [facility] Allergies, Adverse Reactions, Alerts Allergy Allergy Status Severity Reaction(s) Onset Inactive Treating Comm ents Source Name Type Date Date Clinician Sulfa Propensi Active Rash Methodi (Sulfona ty to 11-05 [employer] adverse 00:00: Hospita Antibiot reaction 00 l ics) s to drug 0 Drug Active Unknown Common allergy [facility] Substan Substan Active Unknown Commo n ce with ce with Spirit 3-hydrox 3-hydrox - CHI y-3-meth y-3-meth ylglutar ylglutar [facility] y[facility]-coenz yl-coenz [facility] reductas reductas e e inhibito inhibito r r mechanis mechanis m of m of action action (substan (substan ce) ce) NO KNOWN Drug Active Univers ALLERGIE Class ity of S [facility] Family History Family Member Diagnosis Comments Start Date Stop Date Source Natural father [facility] Natural mother [facility] Social History Social Habit Start Date Stop Date Quantity Comments Source History of Tobacco Common Spirit - Use [facility] Gender identity [facility] Sexual orientation [facility] Exposure to 2022-09-03 2022-09-13 Not sure University of SARS-CoV-2 (event) 00:00:00 08:40:00 [facility] Alcohol intake 2021-11-09 2021-11-09 Lifetime [facility] 00:00:00 00:00:00 non-drinker Hospital (finding) History of Social 2021-11-09 2021-11-[address] function 00:00:00 00:00:00 Hospital Tobacco use and 2021-11-05 2021-11-05 Smokeless [facility] exposure 00:00:00 00:00:00 tobacco non-user Hospital Cigarettes smoked 2021-11-05 2021-11-[address] current (pack per 00:00:00 00:00:00 Hospita l day) - Reported Cigarette 2021-11-05 2021-11-05 [facility] pack-years 00:00:00 00:00:00 Hospital Sex Assigned At [birth year] [facility] 00:00:00 00:00:00 Hospital Smoking Status Start Date Stop Date Source Tobacco smoking [facility] consumption unknown Medical Bran ch Never Smoker Common [facility] - [facility] nter Ex-smoker 2021-11-05 00:00:00 2021-11-05 [facility] 00:00:00 Medications Ordered Filled Start Stop Current Ordering Indication Dosage Frequency Signature Comments Components Source Medication Medication Date Date Medication? Clinician (SIG) Name Name chlorhexidi 0 Yes SWAB WITH U nivers ne 0.12 % 4-05 Q-TIP 3 ity of mouthwash 00:00: TIMES A DAY Medical DIRECTED Branch FOR PERIDONTAL IRRIGATION . DO NOT SWALLOW chlorhexidi 3-0 Yes SWAB WITH U nivers ne 0.12 % 4-05 Q-TIP 3 ity of mouthwash 00:00: TIMES A DAY Medical DIRECTED Branch FOR PERIDONTAL IRRIGATION . DO NOT SWALLOW chlorhexidi 2023-0 Yes SWAB WITH U nivers ne 0.12 % 4-05 Q-TIP 3 ity of mouthwash 00:00: TIMES A DAY Medical DIRECTED Branch FOR PERIDONTAL IRRIGATION . DO NOT SWALLOW chlorhexidi 2023-0 Yes SWAB WITH U nivers ne 0.12 % 4-05 Q-TIP 3 ity of mouthwash 00:00: TIMES A DAY Medical DIRECTED Branch FOR PERIDONTAL IRRIGATION . DO NOT SWALLOW chlorhexidi 2023-0 Yes SWAB WITH U nivers ne 0.12 % 4-05 Q-TIP 3 ity of mouthwash 00:00: TIMES A DAY Medical DIRECTED Branch FOR PERIDONTAL IRRIGATION . DO NOT SWALLOW chlorhexidi 0 Yes SWAB WITH U nivers ne 0.12 % 4-05 Q-TIP 3 ity of mouthwash 00:00: TIMES A DAY Medical DIRECTED Branch FOR PERIDONTAL IRRIGATION . DO NOT SWALLOW gabapentin 2022-0 Yes TAKE 1 TO Un paulo 300 mg 3-27 2 CAPSULES ity of capsule 00:00: BY [facility] ONCE DAILY Medical AT BEDTIME Branch gabapentin 3-0 Yes TAKE 1 TO Un paulo 300 mg 3-27 2 CAPSULES ity of capsule 00:00: BY MOUTH [place] ONCE DAILY Medical AT BEDTIME Branch gabapentin 3-0 Yes TAKE 1 TO Un paulo 300 mg 3-27 2 CAPSULES ity of capsule 00:00: BY [facility] ONCE DAILY Medical AT BEDTIME Branch gabapentin 2022-0 Yes TAKE 1 TO Un paulo 300 mg 3-27 2 CAPSULES ity of capsule 00:00: BY [facility] ONCE DAILY Medical AT BEDTIME Branch gabapentin 3-0 Yes TAKE 1 TO Un paulo 300 mg 3-27 2 CAPSULES ity of capsule 00:00: BY [facility] ONCE DAILY Medical AT BEDTIME Branch gabapentin 3-0 Yes TAKE 1 TO Un paulo 300 mg 3-27 2 CAPSULES ity of capsule 00:00: BY [facility] ONCE DAILY Medical AT BEDTIME Branch levothyroxi 2022-0 Yes 75ug Take 1 Univ ers ne 75 mcg 3-21 tablet by ity o f tablet 00:00: [facility] 00 every Medical morning. Branch levothyroxi 3-0 Yes 75ug Take 1 Univ ers ne 75 mcg 3-21 tablet by ity o f tablet 00:00: [facility] 00 every Medical morning. Branch levothyroxi 3-0 Yes 75ug Take 1 Univ ers ne 75 mcg 3-21 tablet by ity o f tablet 00:00: mouth [place] 00 every Medical morning. Branch levothyroxi 2022-0 Yes 75ug Take 1 Univ ers ne 75 mcg 3-21 tablet by ity o f tablet 00:00: mouth [place] 00 every Medical morning. Branch levothyroxi 2022-0 Yes 75ug Take 1 Univ ers ne 75 mcg 3-21 tablet by ity o f tablet 00:00: mouth [place] 00 every Medical morning. Branch levothyroxi 2022-0 Yes 75ug Take 1 Univ ers ne 75 mcg 3-21 tablet by ity o f tablet 00:00: mouth [place] 00 every Medical morning. Branch candesartan 3-0 Yes 32mg Take 1 Univ ers 32 mg 3-20 tablet by ity of tablet 00:00: mouth [place] 00 every Medical morning. Branch candesartan 2023-0 Yes 32mg Take 1 Univ ers 32 mg 3-20 tablet by ity of tablet 00:00: mouth [place] 00 every Medical morning. Branch candesartan 2023-0 Yes 32mg Take 1 Univ ers 32 mg 3-20 tablet by ity of tablet 00:00: mouth [place] 00 every Medical morning. Branch candesartan 2023-0 Yes 32mg Take 1 Univ ers 32 mg 3-20 tablet by ity of tablet 00:00: mouth [place] 00 every Medical morning. Branch candesartan 2023-0 Yes 32mg Take 1 Univ ers 32 mg 3-20 tablet by ity of tablet 00:00: mouth [place] 00 every Medical morning. Branch candesartan 2023-0 Yes 32mg Take 1 Univ ers 32 mg 3-20 tablet by ity of tablet 00:00: mouth [place] 00 every Medical morning. Branch doxazosin 2 2022-0 Yes 2mg Take 1 Univ ers mg tablet 3-10 tablet by ity o f 00:00: mouth at [place] 00 bedtime. Medical Branch doxazosin 2 2022-0 Yes 2mg Take 1 Univ ers mg tablet 3-10 tablet by ity o f 00:00: mouth at [place] bedtime. Medical Branch doxazosin 2 3-0 Yes 2mg Take 1 Univ ers mg tablet 3-10 tablet by ity o f 00:00: mouth at [place] bedtime. Medical Branch doxazosin 2 3-0 Yes 2mg Take 1 Univ ers mg tablet 3-10 tablet by ity o f 00:00: mouth at [place] 00 bedtime. Medical Branch doxazosin 2 3-0 Yes 2mg Take 1 Univ ers mg tablet 3-10 tablet by ity o f 00:00: mouth at [place] 00 bedtime. Medical Branch doxazosin 2 3-0 Yes 2mg Take 1 Univ ers mg tablet 3-10 tablet by ity o f 00:00: mouth at [place] 00 bedtime. Medical Branch fluticasone 2022-0 Yes USE 2 Unive rs propionate 3-07 SPRAYS IN ity of 50 00:00: EACH [place] mcg/actuati 00 NOSTRIL Medic al on nasal EVERY Branch spray MORNING fluticasone Yes USE 2 Unive rs propionate 3-07 SPRAYS IN ity of 50 00:00: EACH [place] mcg/actuati 00 NOSTRIL Medic al on nasal EVERY Branch spray MORNING fluticasone Yes USE 2 Unive rs propionate 3-07 SPRAYS IN ity of 50 00:00: EACH [place] mcg/actuati 00 NOSTRIL Medic al on nasal EVERY Branch spray MORNING fluticasone Yes USE 2 Unive rs propionate 3-07 SPRAYS IN ity of 50 00:00: EACH [place] mcg/actuati 00 NOSTRIL Medic al on nasal EVERY Branch spray MORNING fluticasone Yes USE 2 Unive rs propionate 3-07 SPRAYS IN ity of 50 00:00: EACH [place] mcg/actuati 00 NOSTRIL Medic al on nasal EVERY Branch spray MORNING fluticasone Yes USE 2 Unive rs propionate 3-07 SPRAYS IN ity of 50 00:00: EACH [place] mcg/actuati NOSTRIL Medic al on nasal EVERY Branch spray MORNING ketoconazol Yes SHAMPOO TO Univers e 2 % 1-31 SCALP ity of shampoo 00:00: DAILY [facility] ketoconazol Yes SHAMPOO TO Univers e 2 % 1-31 SCALP ity of shampoo 00:00: DAILY [facility] ketoconazol Yes SHAMPOO TO Univers e 2 % 1-31 SCALP ity of shampoo 00:00: DAILY [facility] ketoconazol Yes SHAMPOO TO Univers e 2 % 1-31 SCALP ity of shampoo 00:00: DAILY [facility] ketoconazol Yes SHAMPOO TO Univers e 2 % 1-31 SCALP ity of shampoo 00:00: DAILY [facility] ketoconazol Yes SHAMPOO TO Univers e 2 % 1-31 SCALP ity of shampoo 00:00: DAILY [facility] Bupivicaine Bupivicaine No 2.5mg Common Rumney Rumney 1-04 Spirit 00:00: - [facility]I [facility] Kenalog Kenalog 0 No 40mg Common (Triamcinol (Triamcinol 1-04 S pirit one) one) 00:00: - CHI 00 [facility] AndroGel 25 AndroGel 25 No QD AndroGel MG/2.5GM MG/2.5GM 8 25 (1%) (1%) 00:00: MG/2.5GM 00 (1%) [...] doxazosin Yes doxazosin Met hodi (CARDURA) 2 11-[address] MG tablet 16:47: tablet Hospit a 18 l fluticasone Yes fluticason Methodi propionate 11-[address] (FLONASE) 16:47: propionate Ho spita [...] 16:47: shampoo Hos velia 18 l metroNIDAZO 0 Yes metronidaz Methodi LE -06 ole 0.75 % st (METROGEL) 16:47: topical Hosp marlene 0.75 % gel 18 gel l coenzyme 0 Yes 1 capsule Meth abimbola Q10 200 mg [address] capsule 16:47: meal Hospita 18 Orally l Once a day candesartan 2021-0 Yes 32mg QD Take 32 mg Methodi (ATACAND) 6-[address] 32 MG 16:47: daily. Hospita tablet 18 l doxazosin 0 Yes doxazosin Met hodi (CARDURA) 2 11-[address] MG tablet 16:47: tablet Hospit a 18 l fluticasone Yes fluticason Methodi propionate 11-[address] (FLONASE) 16:47: propionate Ho spita [...] 16:47: shampoo Hos velia 18 l metroNIDAZO 0 Yes metronidaz Methodi LE 11-08 ole 0.75 % st (METROGEL) 16:47: topical Hosp marlene 0.75 % gel 18 gel l coenzyme 0 Yes 1 capsule Meth abimbola Q10 200 mg 11-[address] capsule 16:47: meal Hospita 18 Orally l Once a day candesartan 2021-0 Yes 32mg QD Take 32 mg Methodi (ATACAND) 6-[address] 32 MG 16:47: daily. Hospita tablet 18 l docusate 2021-0 2022- No 100mg Q.5D Take 1 Metho di sodium 11-08 07-[address] (Colace) 00:00: 04:59 (100 mg Hospi ta 100 MG 00 :00 total) by l capsule mouth 2 (two) times a day for 30 days. acetaminoph 2021- [place] [address]14 1{tbl} Q6H Take 1-2 Methodi en-codeine 6-06 06-[address] (TYLENOL 00:00: 04:59 mouth Hospita WITH 00 :00 every 6 l CODEINE #3) (six) 300-30 mg hours as per tablet needed for severe pain for up to 30 doses .acute pain. tamsulosin Yes .4mg Q.5D Take 0.4 Met hodi (FLOMAX) 5-[address] 0.4 mg 00:00: mouth 2 Hospita capsule 00 (two) l times a day. tamsulosin 0 Yes .4mg Q.5D Take 0.4 Met hodi (FLOMAX) 5-[address] 0.4 mg 00:00: mouth 2 Hospita capsule 00 (two) l times a day. levothyroxi Yes 75ug QD Take 75 Met hodi ne 4-[address] (SYNTHROID) 00:00: mouth Hospi ta 75 mcg 00 every l tablet morning. levothyroxi 0 Yes 75ug QD Take 75 Met hodi ne 4-[address] (SYNTHROID) 00:00: mouth Hospi ta 75 mcg 00 every l tablet morning. Restasis Yes 1[drp] Q.5D Administer M ethodi 0.05 % [address] ophthalmic 00:00: both eyes Ho spita emulsion 00 2 (two) l times a day. Restasis Yes 1[drp] Q.5D Administer M ethodi 0.05 % 3-[address] ophthalmic 00:00: both eyes Ho spita emulsion 00 2 (two) l times a day. AndroGel 25 AndroGel 25 2020-06 No QD AndroGel MG/2.5GM MG/2.5GM 30 25 (1%) (1%) 00:00: MG/2.5GM 00 (1%) testosteron 2020-06 Yes 2 Method i e 07-[address] (ANDROGEL) 00:00: ns to skin H ospita 1 % (25 00 in the l mg/2.5gram) morning gel in packet testosteron 2020-06 Yes 2 Method i e 1-[address] (ANDROGEL) 00:00: ns to skin H ospita 1 % (25 00 in the l mg/2.5gram) morning gel in packet Sildenafil Sildenafil 2021- No 1{table Sildenafil Citrate 100 Citrate 100 11-09- t_as_ne Citrate MG MG 00:00: 00:00 eded} 100 MG 00 :00 Tadalafil Tadalafil 2021- No 1{table Tadalafil 20 MG 20 MG 07-13 03-05 t} 20 MG 00:00: 00:00 00 :00 Movantik Movantik 2018- No Fernando 1 tablet Common 9-17 10-17 [place] in the Spirit 00:00: 00:00 morning - CHI 00 :00 [facility] [place] Yes Fernando 1-2 Common 9-12 Briggs tablets as Spirit 00:00: needed - CHI 00 [facility] montelukast 2016-06 Yes DAILY Metho di (SINGULAIR) 0-27 st 10 mg 00:00: Hospita tablet 00 l saw 2016-06 Yes DAILY Methodi palmetto 0-27 st 450 mg 00:00: Hospita capsule 00 l cyanocobala 2016-06 Yes DAILY Metho di min 0-27 st (VITAMIN 00:00: Hospita B-12) 1000 00 l MCG tablet montelukast 2016-06 Yes DAILY Metho di (SINGULAIR) 0-27 st 10 mg 00:00: Hospita tablet 00 l saw 2016-06 Yes DAILY Methodi palmetto 0-27 st 450 mg 00:00: Hospita capsule 00 l cyanocobala 2016-06 Yes DAILY Metho di min 0-27 st (VITAMIN 00:00: Hospita B-12) 1000 00 l MCG tablet Zora Zora Yes Fernando 1 tablet Co mmon Allergy Allergy Briggs as needed Spir it - CHI [facility] Levothyroxi Levothyroxi Yes Fernando 1 tablet Common ne Sodium ne Sodium Briggs on an Spir it empty - CHI stomach in [facility] Candesartan Candesartan Yes Fernando 1 tablet Common Cilexetil Cilexetil [facility] Spiri t - CHI [facility] Montelukast Montelukast Yes Fernando 1 tablet Common Sodium Sodium [facility] Spirit - CH[facility] AndroGel AndroGel Yes Fernando 2 Comm on Briggs applicatio Spirit ns to skin - CHI in the [facility] Aspirin 81 Aspirin 81 Yes Fernando 1 tablet Common [facility]gs Spirit - [facility] Tolley 3 Tolley 3 No Tolley 3 Mucinex 600 Mucinex 600 No 1{table [...] Docusate Docusate No Docusate Sodium Sodium Sodium [place] 3 Tolley 3 No [place] 3 Aspirin 81 Aspirin 81 No 1{table [...] Docusate Docusate No Docusate Sodium Sodium Sodium [place] 3 Tolley 3 No [place] 3 CoQ10 200 CoQ10 200 No 1{capsu [...] MG 5 MG le} 5000 5 MG [place] 3 Tolley 3 No [place] 3 Levothyroxi Levothyroxi No QD Levothyrox ne [...] Docusate Docusate No Docusate Sodium Sodium Sodium Immunizations Ordered Filled Immunization Date Status Comments Sour e Immunization Name Name SARS-COV-2 COVID-19 2020-07-29 Completed Unive rsity of PFIZER VACCINE 00:00:00 [facility] SARS-COV-2 COVID-19 2020-07-29 Completed Unive rsity of PFIZER VACCINE 00:00:00 [facility] SARS-COV-2 COVID-19 2020-07-29 Completed Unive rsity of PFIZER VACCINE 00:00:00 [facility] SARS-COV-2 COVID-19 2020-07-29 Completed Unive rsity of PFIZER VACCINE 00:00:00 [facility] SARS-COV-2 COVID-19 2020-07-29 Completed Unive rsity of PFIZER VACCINE 00:00:00 [facility] SARS-COV-2 COVID-19 2020-07-29 Completed Unive rsity of PFIZER VACCINE 00:00:00 [facility] SARS-COV-2 COVID-19 2020-07-29 Completed Unive rsity of PFIZER VACCINE 00:00:00 [facility] SARS-COV-2 COVID-19 2020-07-08 Completed Unive rsity of PFIZER VACCINE 00:00:00 [facility] SARS-COV-2 COVID-19 2020-07-08 Completed Unive rsity of PFIZER VACCINE 00:00:00 [facility] SARS-COV-2 COVID-19 2020-07-08 Completed Unive rsity of PFIZER VACCINE 00:00:00 [facility] SARS-COV-2 COVID-19 2020-07-08 Completed Unive rsity of PFIZER VACCINE 00:00:00 [facility] SARS-COV-2 COVID-19 2020-07-08 Completed Unive rsity of PFIZER VACCINE 00:00:00 [facility] SARS-COV-2 COVID-19 2020-07-08 Completed Unive rsity of PFIZER VACCINE 00:00:00 [facility] SARS-COV-2 COVID-19 2020-07-08 Completed Unive rsity of PFIZER VACCINE 00:00:00 [facility] Vital Signs Vital Name Observation Time Observation Value Comments Source Systolic blood 2022-09-13 14:00:00 137 mm[Hg] Univer sity of pressure [facility] Diastolic blood 2022-09-13 14:00:00 84 mm[Hg] Unive rsity of pressure [facility] Heart rate 2022-09-13 14:00:00 84 /min Universi ty of [facility] Body height 2022-09-13 14:00:00 177.8 cm Universi ty of [facility] Body weight 2022-09-13 14:00:00 110.224 kg Universi ty [facility] BMI 2022-09-13 14:00:00 34.87 kg/m2 Universi ty [facility] Oxygen saturation in 2022-09-13 14:00:00 98 /min [facility] Arterial blood by [facility] Pulse oximetry Branch height 2022-06-08 08:45:00 71 [in_i] Common [facility] weight 2022-06-08 08:45:00 247 [lb_av] [facility] temperature 2022-06-08 08:45:00 98.1 [degF] Common [facility] bmi 2022-06-08 08:45:00 34.45 kg/m2 Common [facility] blood pressure 2022-06-08 08:45:00 135 mm[Hg] Common Spirit - systolic [facility] blood pressure 2022-06-08 08:45:00 78 mm[Hg] Common Spirit - diastolic [facility] height 2022-04-21 09:30:00 71 [in_i] Common [facility] weight 2022-04-21 09:30:00 251 [lb_av] Common [facility] temperature 2022-04-21 09:30:00 97.0 [degF] Common [facility] bmi 2022-04-21 09:30:00 35 kg/m2 Common [facility] blood pressure 2022-04-21 09:30:00 137 mm[Hg] Common Spirit - systolic [facility] blood pressure 2022-04-21 09:30:00 75 mm[Hg] Common Spirit - diastolic [facility] height 2022-04-13 10:00:00 71 [in_i] [facility] weight 2022-04-13 10:00:00 251 [lb_av] Common S pirit [facility] temperature 2022-04-13 10:00:00 98.6 [degF] Common S pirit [facility] bmi 2022-04-13 10:00:00 35 kg/m2 Common [facility] oximetry 2022-04-13 10:00:00 98 % Common S [facility] respiratory rate 2022-04-13 10:00:00 16 /min Comm on Spirit - [facility] blood pressure 2022-04-13 10:00:00 157 mm[Hg] Common [facility] - systolic [facility] blood pressure 2022-04-13 10:00:00 76 mm[Hg] Common Spirit - diastolic [facility] height 2022-03-11 08:30:00 71 [in_i] [facility] weight 2022-03-11 08:30:00 250 [lb_av] [facility] S [facility] temperature 2022-03-11 08:30:00 97.7 [degF] [facility] bmi 2022-03-11 08:30:00 34.86 kg/m2 [facility] blood pressure 2022-03-11 08:30:00 138 mm[Hg] Common Spirit - systolic [facility] blood pressure 2022-03-11 08:30:00 84 mm[Hg] Common Spirit - diastolic [facility] height 2022-01-10 13:00:00 71 [in_i] [facility] weight 2022-01-10 13:00:00 248 [lb_av] [facility] temperature 2022-01-10 13:00:00 97.8 [degF] Common S pirit [facility] bmi 2022-01-10 13:00:00 34.59 kg/m2 Common S pirit [facility] oximetry 2022-01-10 13:00:00 98 % Common S pirit [facility] respiratory rate 2022-01-10 13:00:00 16 /min Comm on Spirit - [facility] blood pressure 2022-01-10 13:00:00 132 mm[Hg] Common [facility] - systolic [facility] blood pressure 2022-01-10 13:00:00 68 mm[Hg] Common [facility] - diastolic [facility] Systolic blood 2021-11-08 21:15:00 154 mm[Hg] [facility] pressure Diastolic blood 2021-11-08 21:15:00 72 mm[Hg] [facility] pressure Heart rate 2021-11-08 21:15:00 64 /min [facility] Respiratory rate 2021-11-08 21:15:00 18 /min [facility] Oxygen saturation in 2021-11-08 21:15:00 99 /min [facility] Arterial blood by Pulse oximetry Body temperature 2021-11-08 20:54:[address] [facility] Body height 2021-11-08 15:04:00 179.1 cm [facility] Body weight 2021-11-08 15:04:00 112.492 kg [facility] BMI 2021-11-08 15:04:00 35.08 kg/m2 [facility] Procedures Procedure Date / Time Performing Clinician Source Performed ASSIGNMENT OF BENEFITS 2022-09-13 13:43:33 Doctor Unassigned, Un [facility] [place] [facility] IA AN ELECTIVE 2021-11-08 17:47:00 Mai Valiente [facility] SUPRAGLOTTIC AIRWAY EXTRACORPOREAL SHOCKWAVE 2021-11-08 17:40:00 Milagros Goldman [facility] LITHOTRIPSY (ESWL) POC GLUCOSE 2021-11-08 15:49:00 Milagros Goldman spital URINE CULTURE 2021-11-05 16:10:00 Milagros Goldman spital ECG 12-LEAD 2021-11-05 16:03:55 Kathy Jerez ospital HEMOGLOBIN A1C 2021-11-05 15:08:00 Kathy Jerez ospital URINALYSIS SCREEN AND 2021-11-05 15:06:00 Milagros Goldman [facility] MICROSCOPY, WITH REFLEX TO CULTURE CBC WITH PLATELET AND 2021-11-05 15:05:00 Milagros Goldman [facility] DIFFERENTIAL BASIC METABOLIC PANEL 2021-11-05 15:05:00 Milagros Goldman [facility] PROTHROMBIN TIME WITH INR 2021-11-05 15:05:00 Milagros Goldman [facility] PARTIAL THROMBOPLASTIN 2021-11-05 15:05:00 Milagros Goldman [facility] TIME (PTT) ESTIMATED GFR 2021-11-05 15:05:00 Milagros Goldman spital XR TOMOGRAMS 2021-11-04 16:30:38 Milagros Goldman spital Plan of Care Planned Activity Planned Date Details Comments Source Future Scheduled 2023-01-05 65+ PNEUMOCOCCAL [facility] Test 10:07:00 VACCINE (1 - PCV) [code = 65+ PNEUMOCOCCAL VACCINE (1 - PCV)] Future Scheduled 2023-01-05 SHINGLES VACCINES (2 Met [facility] Test 10:07:00 of 2) [code = SHINGLES VACCINES (2 of 2)] Future Scheduled 2023-01-05 COVID-19 VACCINE (5 - [facility] Test 10:07:00 Pfizer series) [code = COVID-19 VACCINE (5 - Pfizer series)] Future Scheduled 2023-01-05 ZZZ INFLUENZA VACCINE [facility] Test 10:07:00 [code = ZZZ INFLUENZA VACCINE] Future Scheduled 2022-08-01 65+ PNEUMOCOCCAL [facility] Test 11:40:33 VACCINE (1 - PCV) [code = 65+ PNEUMOCOCCAL VACCINE (1 - PCV)] Future Scheduled 2022-08-01 SHINGLES VACCINES (2 Met [facility] Test 11:40:33 of 2) [code = SHINGLES VACCINES (2 of 2)] Future Scheduled 2022-08-01 COVID-19 VACCINE (5 - [facility] Test 11:40:33 Booster for Pfizer series) [code = COVID-19 VACCINE (5 - Booster for Pfizer series)] Future Scheduled 2022-08-01 INFLUENZA VACCINE [facility] 11:40:33 [code = INFLUENZA VACCINE] Encounters Start End Encounter Admission Attending Care Care Encounter Source Date/Time Date/Time Type Type Clinicians Facility Department ID 2022-06-[address] [facility] [id number] Common 10:48:00 [id number] [facility] 2022-03-[address] [facility] [id number] Common 14:39:01 [facility] 2022-03-[address] [facility] [id number] Common 08:42:01 [facility] 2022-02-[address] [facility] [id number] Common 09:13:01 [facility] 2022-01-[address] [facility] [id number] Common 13:05:00 [facility] 2021-12-[address] [facility] [id number] Common 11:13:00 [facility] 2021-06-[address] [facility] [id number] Common 12:25:49 [id number] [facility] 2021-06-[address] [facility] [id number] Common 12:24:44 [id number] [facility] 2022-10-05 2022-10-05 [facility] 1.2.840.114 [id number] Univers 00:00:00 00:00:00 [facility] [id number] ity of [place] 4.2.7.2.686 Silver as YULI?BLEA [phone] [address] OFFICE BUILDING 2022-09-15 2022-09-15 [facility] 1.2.840.114 [id number] Univers 00:00:00 00:00:00 [facility] 350.1.13.10 ity of [place] 4.2.7.2.686 Silver as YULI?BLEA [id number] [address] OFFICE BUILDING 2022-09-14 2022-09-14 Telephone Javier [facility] 1.2.840.114 [id number] Univers 00:00:00 00:00:00 [facility] [id number] ity of [place] 4.2.7.2.686 Silver as YULI?BLEA [id number] In aury [address] OFFICE [facility] 2022-09-13 2022-09-13 [facility], Ang - Db [facility] 1.2.840.1 [id number] Univers 10:00:00 10:15:00 Visit Brent Herrera [facility] 350.1.13. 10 ity of [facility] 4.2.7.2.686 Silver as YULI?BLEA [id number] In aury RENDON [address] [facility] OFFICE [facility] 2022-09-13 2022-09-13 Outpatient R BRENT HERRERA [facility] [id number] Univers 09:20:00 09:57:27 [facility] 2022-09-13 [facility] 1.2.840.114 [id number] Univers 09:20:00 09:57:27 Visit [facility] 350.1.13.10 ity of [facility] 4.2.7.2.686 Silver as YULI?BLEA [phone] In aury [address] OFFICE [facility] 2022-09-13 2022-09-13 Orders Doctor MILAGROS 1.2.840.114 [id number] Univers 00:00:00 00:00:00 Only Unassigned, JACIEL 350.1.13.10 ity of [place] [facility] 4.2.7.2.686 Silver as [id number] [address] 2022-06-08 2022-06-08 OFFICE STLMLC STLMLC [id number] Co mmon 00:00:00 00:00:00 VISIT Spirit ESTAB PT - CHI LEVEL 4 [facility] 2022-04-21 2022-04-21 OFFICE STLMLC STLMLC [id number] Co mmon 00:00:00 00:00:00 VISIT EST Spir it PT LEVEL 3 - CHI [facility] 2022-04-13 2022-04-13 OFFICE STLMLC STLMLC [id number] Co mmon 00:00:00 00:00:00 VISIT Moses ESTAB PT - CHI LEVEL 2 [facility] 2022-03-11 2022-03-11 OFFICE STLMLC STLMLC [id number] Co mmon 00:00:00 00:00:00 VISIT NEW Spir it PT LEVEL 4 - CHI [facility] 2022-01-10 2022-01-10 OFFICE STLMLC STLMLC [id number] Co mmon 00:00:00 00:00:00 VISIT Spirit ESTAB PT - CHI LEVEL 4 [facility] 2021-11-08 2021-11-08 Hospital Milagros Goldman 1.2.840.1 [id number] Methodi 09:33:00 16:47:00 En[place] R [address].1.[address] 3.430.2.7 Hospit a .3.862061 l .8 2021-11-08 2021-11-08 Anesthesia Mai Valiente AAnia 1.2.840.1 10 [id number] Methodi 12:40:00 14:05:00 Event Kathy Jerez 99028.1.[address] 3.430.2.7 Hospit a .3.407110 l .8 2021-11-08 2021-11-08 Surgery Milagros Goldman 1.2.840.1 [id number] Methodi 12:15:00 13:35:[address] 3.430.2.7 Hospit a .3.607419 l .8 2021-11-05 2021-11-05 Pre-Admiss Milagros Goldman 1.2.840.1 [id number] Methodi 10:00:00 11:00:00 [place] [address].1.[address] Testing 3.430.2.7 Hospit a .3.160729 l .8 2021-11-04 2021-11-04 [facility] Milagros Goldman 1.2.840.1 [id number] Methodi 11:00:00 23:59:00 [place] R [address]93.1.[address] 3.430.2.7 Hospit a .3.518112 l .8 2021-11-04 2021-11-04 Travel 1.2.840.1 1.2.103.509 [id number] Methodi 00:00:00 00:00:[address] 3.430.2.7 0.2.7.3.698 Ho spita .3.327403 084.8 l .8 2021-11-04 2021-11-04 Transcribe YanticMilagros 1.2.840.1 [id number] Methodi 00:00:00 00:00:00 [place] [address]24.1.[address] 3.430.2.7 Hospit a .3.786264 l .8 2021-05-03 2021-05-03 (TEL) STLMLC STLMLC [id number] Co mmon 00:00:00 00:00:00 [facility] 2020-11-26 2020-11-26 Outpatient STLMLC STLMLC [id number] Common 00:00:00 00:00:00 [facility] 2020-11-09 2020-11-09 Outpatient STLMLC STLMLC [id number] Common 00:00:00 00:00:00 [facility] 2020-10-27 2020-10-27 Outpatient STLMLC STLMLC [id number] Common 00:00:00 00:00:00 [facility] 2020-10-13 2020-10-13 Outpatient STLMLC STLMLC [id number] Common 00:00:00 00:00:00 [facility] 2020-10-13 2020-10-13 Outpatient STLMLC STLMLC [id number] Common 00:00:00 00:00:00 [facility] 2020-10-13 2020-10-13 Outpatient STLMLC STLMLC [id number] Common 00:00:00 00:00:00 [facility] 2020-07-132020-07-13 [facility] [id number] Common 00:00:00 00:00:00 [facility] 2020-07-01 2020-07-01 [facility] [id number] Common 00:00:00 00:00:00 [facility] 2018-03-12 2018-03-12 [facility] [id number] Common 10:30:00 10:30:00 [facility] 2018-02-26 2018-02-26 [facility] [id number] Common 11:00:00 11:00:00 t [facility] 2018-02-19 2018-02-19 [facility] [id number] Common 13:11:00 13:11:00 t [facility] 2018-02-15 2018-02-15 [facility] [id number] Common 15:29:00 15:29:00 t [facility] 2018-02-15 2018-02-15 [facility] [id number] Common 09:51:00 09:51:00 t [facility] 2018-02-14 2018-02-14 [facility] [id number] Common 08:42:00 08:42:00 t [facility] 2018-01-22 2018-01-22 [facility] [id number] Common 11:00:00 11:00:00 t [facility] Results Test Description Test Time Test Comments Results Result Comments Source POC glucose 2021-11-08 15:50:00 Test Item Value Reference Range Interpretation Comme nts POC glucose (test code = 38902-3) 97 mg/dL 65-99 Four Slide Operator Name: Bereket Mckeon [facility]: [id number] [facility] [id number] 20:45:39 Test Item Value Reference Range Interpretation Comments Ventricular rate 75 (test code = 253) Atrial rate (test 75 code = 255) IA interval (test 178 code = 266) QRSD [...] 273) rhythm-Nonspecific intraventricular block-No previous ECGs available- [facility] [id number] 17:56:00 Test Item Value Reference Range Interpretation Comments Urine culture (test SEE COMMENT Bacteriu elvia screen code = 2965529) negative. [facility]
[2023-01-29] MEDS ORDERED: DIAZEPAM 5 MG TABLET ONE (08:44)
[2023-01-29] MEDS ORDERED: FENTANYL CITR 100 MCG/2 ML ONE (08:45)
[2023-01-29] MEDS ORDERED: dexAMETHasone 10 MG/ML VIAL ONE (08:45)
[2023-01-29] MEDS ORDERED: KETOROLAC 30 MG/ML INJ ONE (08:45)
[2023-01-29] MEDS ORDERED: ONDANSETRON 4 MG/2 ML VIAL ONE (08:45)
[2023-01-29] MEDS ORDERED: NA CHLORIDE 0.9% 1,000 ML ONE (08:45)
[2023-01-29 09:11] LABS: Absolute Lymphocytes (CBC) 2.8 K/uL (0.7-4.9); Hematocrit 38.5 % (39.6-49.0); Lymphocytes % 36.8 % (15.3-44.8); Platelets 213 thou/uL (152-406); RBC Red Blood Cell Count 4.05 M/uL (4.33-5.43)
[2023-01-29 09:25] LABS: Albumin 3.6 g/dL (3.4-5.0); Bilirubin Total 0.5 mg/dL (0.2-1.0); Potassium 4.2 mEq/L (3.5-5.1); Protein, Total 6.9 g/dL (6.4-8.2)
--- NOTE | 2023-01-29 10:08 | RAD REPORT ---
EXAM DESCRIPTION: CT - Stone Protocol - 01/29/2023 9:28 am CLINICAL HISTORY: PAIN COMPARISON: Abdomen Pelvis Wo Contrast dated 08/02/2022; Stone Protocol dated 09/03/2018; Abdomen P pinky W Contrast dated 03/29/2018; Stone Protocol dated 04/03/2017 TECHNIQUE: Thin cut axial CT imaging of the abdomen and pelvis was performed without IV contrast. Mu ltiplanar reformats were generated and reviewed. All CT scans are performed using dose optimization technique as appropriate and may include automated exposure control or mA/KV adjustment according to patient size. FINDINGS: No suspicious findings in the lung bases. The liver, spleen, and pancreas show no suspicious findings. Multiple small gallstones. No intra or e xtrahepatic biliary ductal dilation. Symmetric renal contour, without suspicious parenchymal findings within limits of noncontrast techniq ue, with stable sizable left lower pole renal cysts, largest measuring 5.5 cm. No evidence of hydrour eteronephrosis. 11 millimeter right midpole calculus is stable. No dilated bowel loops or bowel wall thickening. Colonic diverticulosis. No free air, free fluid or i nflammatory stranding. Small left inguinal hernia containing fat. No suspicious mass or bulky lymphad enopathy. Prostatomegaly. The urinary bladder is without significant finding. No suspicious bony findings. IMPRESSION: No acute intra-abdominal process. No hydroureteronephrosis. Stable right renal midpole 11 millimeter calculus. Other stable findings including cholelithiasis and left renal cysts.
--- NOTE | 2023-01-29 10:38 | ER ---
Nurse's Notes [facility] Name: Juan Story Age: 87 yrs Sex: Male : 1935 Arrival Date: 01/29/2023 Time: 08:14 Bed 8 Private MD: Diagnosis: Unspecified symptoms and signs involving the musculoskeletal system;Low back pain;Strain of muscle, fascia and tendon of abdomen, lower back and pelvis;Other injury of muscle, fascia and tendon of lower back Presentation: 01/29 08:24 Chief complaint: Severe left low back and flank pain upon waking today. Denies injury hb or urinary s/s, hx of kidney stones. Coronavirus screen: At this time, the client does not indicate any symptoms associated with coronavirus-19. Ebola Screen: No symptoms or risks identified at this time. Initial Sepsis Screen: Does the patient meet any 2 criteria? No. Patient's initial sepsis screen is negative. Does the patient have a suspected source of infection? No. Patient's initial sepsis screen is negative. Risk Assessment: Do you want to hurt yourself or someone else? Patient reports no desire to harm self or others. Onset of symptoms was January 29, 2023. 08:24 Method Of Arrival: Ambulatory hb 08:24 Acuity: LANE 3 hb Historical: - Allergies: 09:01 Hdfkbyn-Lnj-Vgu Reductase Inhibitor; hb 09:01 Sulfa (Sulfonamide Antibiotics); hb - Home Meds: 09:17 AndroGel 1.62 % (40.5 mg/2.5 gram) transdermal glpk 1 packet once daily [Active]; hb aspirin 81 mg Oral chew 1 tab once daily [Active]; candesartan 16 mg Oral tab daily [Active]; CoQ-10 100 mg Oral cap daily [Active]; Fish Oil 1,000 mg Oral cap daily [Active]; glucosamine-chondroitin 1,500-1,200 mg/30 mL Oral liqd daily [Active]; levothyroxine 75 mcg tab 1 tab once daily [Active]; montelukast 10 mg Oral tab 1 tab once daily [Active]; Probiotic 14 billion cfu's Oral cap [Active]; - PMHx: 09:01 Hyperlipidemia; Hypertension; Hypothyroidism; hb 09:21 Kidney Stones; hb - PSHx: 09:20 UroLift; hb - Immunization history:: Adult Immunizations up to date. - Social history:: Smoking status: Patient denies any tobacco usage or history of. - Family history:: not pertinent. Screenin:04 [facility] ED Fall Risk Assessment (Adult) Score/Fall Risk Level 0 - 2 = Low Risk hb Oriented to surroundings, Maintained a safe environment. Abuse screen: Denies threats or abuse. Denies injuries from another. Nutritional screening: No deficits noted. Tuberculosis screening: No symptoms or risk factors identified. Assessment: 09:04 General: Appears in no apparent distress. uncomfortable, Behavior is calm, cooperative. hb Pain: Pain currently is 10 out of 10 on a pain scale. Neuro: Level of Consciousness is awake, alert, obeys commands, Oriented to person, place, time, situation. Cardiovascular: Patient's skin is warm and dry. Respiratory: Respiratory effort is even, unlabored, Respiratory pattern is regular, symmetrical. GI: No signs and/or symptoms were reported involving the gastrointestinal system. : No signs and/or symptoms were reported regarding the genitourinary system. EENT: No signs and/or symptoms were reported regarding the EENT system. Derm: Skin is pink, warm \T\ dry. Musculoskeletal: Reports left left back pain. 10:00 Reassessment: Patient appears in no apparent distress at this time. Patient and/or hb family updated on plan of care and expected duration. Pain level reassessed. Patient is alert, oriented x 3, equal unlabored respirations, skin warm/dry/pink. 11:00 Reassessment: Patient appears in no apparent distress at this time. Patient and/or hb family updated on plan of care and expected duration. Pain level reassessed. Patient is alert, oriented x 3, equal unlabored respirations, skin warm/dry/pink. Vital Signs: 08:24 BP 142 / 65; Pulse 55; Resp 16; Temp 98; Pulse Ox 95% on R/A; Weight 113.4 kg; Height 5 hb ft. 8 in. ; Pain 10/10; 09:45 BP 158 / 81; Pulse 70; Resp 16; Pulse Ox 98% ; hb 10:45 BP 146 / 80; Pulse 72; Resp 15; Pulse Ox 99% on R/A; hb 08:24 Body Mass Index 38.01 (113.40 kg, 172.72 cm) hb 08:24 Pain Scale: Adult hb ED Course: 08:16 Patient arrived in ED. rg4 08:17 Ricardo Huang MD is Attending Physician. coco 09:01 CBC with Diff Sent. hb 09:01 Comprehensive Metabolic Panel Sent. hb 09:03 Triage completed. hb 09:05 Patient has correct armband on for positive identification. Provided Education on: . hb 09:05 Arm band placed on. hb 09:28 Stone Protocol In Process Unspecified. EDMS 09:45 Christiane Sánchez RN is Primary Nurse. hb 10:36 Lukas Shepard MD is Referral Physician. coco 11:07 No provider procedures requiring assistance completed. IV discontinued, intact, hb bleeding controlled, No redness/swelling at site. Administered Medications: 09:01 Drug: Diazepam PO 5 mg Route: PO; hb 09:01 Drug: Ketorolac IVP 15 mg Route: IVP; Site: right antecubital; hb 09:01 Drug: fentaNYL (PF) IVP 50 mcg Route: IVP; Site: right antecubital; hb 09:01 Drug: Ondansetron IVP 4 mg Route: IVP; Site: right antecubital; hb 09:01 Drug: Decadron - Dexamethasone IVP 10 mg Route: IVP; Site: right antecubital; hb 09:01 Drug: NS 0.9% IV 1000 ml Route: IV; Rate: 1 bolus; Site: right antecubital; hb Medication: 09:05 VIS not applicable for this client. hb Outcome: 10:37 Discharge ordered by . coco 11:07 Discharged to home via wheelchair, with significant other. hb 11:07 Condition: stable 11:07 Discharge instructions given to patient, significant other, Instructed on discharge instructions, follow up and referral plans. medication usage, Demonstrated understanding of instructions, follow-up care, medications, Prescriptions given X 4. 11:08 Patient left the ED. hb Signatures: Dispatcher [employer] EDWA Ricardo Huang MD MD cha Baxter, Heather, RN RN Selma Conway rg4 Corrections: (The following items were deleted from the chart) 09:21 09:20 PSHx: Urolift; hb hb 09:25 09:17 PMHx: kidney Stones; hb hb
--- NOTE | 2023-01-29 10:38 | EDPHYS ---
Physician Documentation [facility] Name: Juan Story Age: 87 yrs Sex: Male : 1935 Arrival Date: 01/29/2023 Time: 08:14 Bed 8 Private MD: ED Physician Ricardo Huang HPI: 01/29 10:32 This 87 yrs old Male presents to ER via Ambulatory with complaints of Low coco Back Pain. 10:32 The patient presents with pain that is acute, that is chronic, with no known mechanism coco of injury, and decreased range of motion. The symptoms are located in the left low back and left mid back. The pain does not radiate. The problem was sustained from unknown cause. Onset: The symptoms/episode began/occurred 2 day(s) ago. Modifying factors: The patient symptoms are alleviated by nothing, the patient symptoms are aggravated by movement. Associated signs and symptoms: Pertinent positives: none. Severity of symptoms: At their worst the symptoms were moderate, in the emergency department the symptoms are unchanged. The patient has not experienced similar symptoms in the past. Historical: - Allergies: 09:01 Dxvpofk-Mvz-Hxr Reductase Inhibitor; hb 09:01 Sulfa (Sulfonamide Antibiotics); hb - Home Meds: 09:17 AndroGel 1.62 % (40.5 mg/2.5 gram) transdermal glpk 1 packet once daily [Active]; hb aspirin 81 mg Oral chew 1 tab once daily [Active]; candesartan 16 mg Oral tab daily [Active]; CoQ-10 100 mg Oral cap daily [Active]; Fish Oil 1,000 mg Oral cap daily [Active]; glucosamine-chondroitin 1,500-1,200 mg/30 mL Oral liqd daily [Active]; levothyroxine 75 mcg tab 1 tab once daily [Active]; montelukast 10 mg Oral tab 1 tab once daily [Active]; Probiotic 14 billion cfu's Oral cap [Active]; - PMHx: 09:01 Hyperlipidemia; Hypertension; Hypothyroidism; hb 09:21 Kidney Stones; hb - PSHx: 09:20 UroLift; hb - Immunization history:: Adult Immunizations up to date. - Social history:: Smoking status: Patient denies any tobacco usage or history of. - Family history:: not pertinent. ROS: 10:32 Constitutional: Negative for fever, chills, and weight loss, Eyes: Negative for injury, coco pain, redness, and discharge, ENT: Negative for injury, pain, and discharge, Neck: Negative for injury, pain, and swelling, Cardiovascular: Negative for chest pain, palpitations, and edema, Respiratory: Negative for shortness of breath, cough, wheezing, and pleuritic chest pain, Abdomen/GI: Negative for abdominal pain, nausea, vomiting, diarrhea, and constipation, : Negative for injury, bleeding, discharge, and swelling, MS/Extremity: Negative for injury and deformity, Skin: Negative for injury, rash, and discoloration, Neuro: Negative for headache, weakness, numbness, tingling, and seizure, Psych: Negative for depression, anxiety, suicide ideation, homicidal ideation, and hallucinations, Allergy/Immunology: Negative for hives, rash, and allergies, Endocrine: Negative for neck swelling, polydipsia, polyuria, polyphagia, and marked weight changes, Hematologic/Lymphatic: Negative for swollen nodes, abnormal bleeding, and unusual bruising. 10:32 Back: Positive for decreased range of motion, pain at rest, pain with movement, of the left low back and left mid back. Exam: 10:32 Constitutional: This is a well developed, well nourished patient who is awake, alert, coco and in no acute distress. Head/Face: Normocephalic, atraumatic. Eyes: Pupils equal round and reactive to light, extra-ocular motions intact. Lids and lashes normal. Conjunctiva and sclera are non-icteric and not injected. Cornea within normal limits. Periorbital areas with no swelling, redness, or edema. ENT: Nares patent. No nasal discharge, no septal abnormalities noted. Tympanic membranes are normal and external auditory canals are clear. Oropharynx with no redness, swelling, or masses, exudates, or evidence of obstruction, uvula midline. Mucous membranes moist. Neck: Trachea midline, no thyromegaly or masses palpated, and no cervical lymphadenopathy. Supple, full range of motion without nuchal rigidity, or vertebral point tenderness. No Meningismus. Chest/axilla: Normal chest wall appearance and motion. Nontender with no deformity. No lesions are appreciated. Cardiovascular: Regular rate and rhythm with a normal S1 and S2. No gallops, murmurs, or rubs. Normal PMI, no JVD. No pulse deficits. Respiratory: Lungs have equal breath sounds bilaterally, clear to auscultation and percussion. No rales, rhonchi or wheezes noted. No increased work of breathing, no retractions or nasal flaring. Abdomen/GI: Soft, non-tender, with normal bowel sounds. No distension or tympany. No guarding or rebound. No evidence of tenderness throughout. Male : Normal genitalia with no discharge or lesions. Skin: Warm, dry with normal turgor. Normal color with no rashes, no lesions, and no evidence of cellulitis. MS/ Extremity: Pulses equal, no cyanosis. Neurovascular intact. Full, normal range of motion. Neuro: Awake and alert, GCS 15, oriented to person, place, time, and situation. Cranial nerves II-XII grossly intact. Motor strength 5/5 in all extremities. Sensory grossly intact. Cerebellar exam normal. Normal gait. Psych: Awake, alert, with orientation to person, place and time. Behavior, mood, and affect are within normal limits. 10:32 Back: pain, that is moderate, ROM is painful, with all movement, normal spinal alignment noted, CVA tenderness, is absent, muscle spasm, is appreciated in the left low back, left mid back, right mid back and right low back. Vital Signs: 08:24 BP 142 / 65; Pulse 55; Resp 16; Temp 98; Pulse Ox 95% on R/A; Weight 113.4 kg; Height 5 hb ft. 8 in. ; Pain 10/10; 09:45 BP 158 / 81; Pulse 70; Resp 16; Pulse Ox 98% ; hb 10:45 BP 146 / 80; Pulse 72; Resp 15; Pulse Ox 99% on R/A; hb 08:24 Body Mass Index 38.01 (113.40 kg, 172.72 cm) hb 08:24 Pain Scale: Adult hb MDM: 08:17 Patient medically screened. coco 08:25 Patient medically screened. coco 10:53 Differential diagnosis: arthritis, strain, fracture, sciatica, contusion, Herniated coco disc UTI. Data reviewed: vital signs, nurses notes, lab test result(s), radiologic studies, CT scan. Consideration of Admission/Observation Escalation of care including admission/observation considered. I considered the following discharge prescriptions or medication management in the emergency department Medications were administered in the Emergency Department. See MAR. Test considered but Not performed: X-ray: no x ray. Care significantly affected by the following chronic conditions: Hypertension, hyperlipid, hypthyroid. 01/29 08: Order name: CBC with Diff; Complete Time: 10:11 [facility] 01/29 08:27 Order name: Comprehensive Metabolic Panel; Complete Time: 10:11 [facility] 01/29 10:29 Order name: Urinalysis w/ reflexes; Complete Time: 11:03 [facility] 01/29 09:28 Order name: Stone Protocol; Complete Time: 10:11 EDMS Administered Medications: 09:01 Drug: Diazepam PO 5 mg Route: PO; hb 09:01 Drug: Ketorolac IVP 15 mg Route: IVP; Site: right antecubital; hb 09:01 Drug: fentaNYL (PF) IVP 50 mcg Route: IVP; Site: right antecubital; hb 09:01 Drug: Ondansetron IVP 4 mg Route: IVP; Site: right antecubital; hb 09:01 Drug: Decadron - Dexamethasone IVP 10 mg Route: IVP; Site: right antecubital; hb 09:01 Drug: NS 0.9% IV 1000 ml Route: IV; Rate: 1 bolus; Site: right antecubital; hb Disposition Summary: 01/29/23 10:37 Discharge Ordered Location: Home coco Problem: new coco Symptoms: have improved coco Condition: Stable coco Diagnosis - Unspecified symptoms and signs involving the musculoskeletal system coco - Low back pain coco - Strain of muscle, fascia and tendon of abdomen, lower back and pelvis coco - Other injury of muscle, fascia and tendon of lower back coco Followup: coco - With: Private Physician - When: 2 - 3 days - Reason: Recheck today's complaints, Re-evaluation by your physician Followup: coco - With: Lukas Shepard MD - When: As needed - Reason: Recheck today's complaints, Continuance of care, Re-evaluation by your physician Discharge Instructions: - Discharge Summary Sheet coco - Acute Back Pain, Adult coco - Musculoskeletal Pain coco Forms: - Medication Reconciliation Form [facility] - Thank You Letter [facility] - Antibiotic Education coco - Prescription Opioid Use coco - Patient Portal Instructions [facility] - Leadership Thank You Letter [facility] Prescriptions: - acetaminophen-codeine 300-30 mg Oral tablet - take 1 tablet by ORAL route every 4-6 hours as needed for pain; 20 tablet; [facility] Refills: 0, Product Selection Permitted - dexamethasone 2 mg Oral tablet - take 1 tablet by ORAL route every 12 hours; 10 tablet; Refills: 0, Product coco Selection Permitted - diclofenac sodium 50 mg Oral tablet, delayed release (enteric coated) - take 1 tablet by ORAL route 3 times per day; 21 tablet; Refills: 0, Product coco Selection Permitted - Valium 5 mg Oral Tablet - take 1 tablet by ORAL route every 8 hours As needed; 20 tablet; Refills: 0, [facility] Product Selection Permitted Signatures: Dispatcher [employer] Ricardo Cason MD MD cha Baxter, Heather, RN RN Corrections: (The following items were deleted from the chart) : 09:20 PSHx: Urolift; [facility] :25 09:17 PMHx: kidney Stones; [facility] 09:28 08:28 Spine Lumbar Wo Con+CT.RAD.BRZ ordered. EDSD EDSD
[2023-01-29 10:56] LABS: Specific Gravity 1.025 (1.005-1.030); Urine Bilirubin NEGATIVE (Negative); Urine Blood Negative (Negative); Urine Clarity Clear (Clear); Urine Color Yellow (Yellow); Urine Glucose NEGATIVE (Negative); Urine Protein NEGATIVE (Negative); Urine Urobilinogen Normal (Normal)
[2023-01-29 11:13] VITALS: TEMP 98
[2023-01-29 11:15] VITALS: BP 146/80; O2SAT 99
== END 2023-01-29 11:08 | disposition home or self-care (01) ==
LOC: ER 08:14
DX: S39.012A Strain of muscle, fascia and tendon of lower back, initial encounter (principal); S39.013A Strain of muscle, fascia and tendon of pelvis, initial encounter; R29.91 Unspecified symptoms and signs involving the musculoskeletal system; I10 Essential (primary) hypertension; Z87.442 Personal history of urinary calculi; Z88.2 Allergy status to sulfonamides; Z88.8 Allergy status to other drugs, medicaments and biological substances
CPT/HCPCS: 85025; 36415; 81003; 80053; 76377; 74176; J3010; J1100; J2405; J7030; 96374; 96375; 99284

== ENCOUNTER 2023-03-21 07:42 | Day surgery (SDC) | payer OTHER ==
[2023-03-13 13:50] LABS: Absolute Lymphocytes (CBC) 2.7 K/uL (0.7-4.9); Hematocrit 41.3 % (39.6-49.0); Lymphocytes % 32.4 % (15.3-44.8); MPV 8.3 fL (7.6-11.3); Platelets 195 thou/uL (152-406); Protime INR 1.05; RBC Red Blood Cell Count 4.31 M/uL (4.33-5.43)
[2023-03-13 13:55] LABS: Potassium 3.8 mEq/L (3.5-5.1)
--- NOTE | 2023-03-13 19:04 | RAD REPORT ---
EXAM DESCRIPTION: RAD - Chest Pa And Lat (2 Views) - 03/13/2023 1:39 pm CLINICAL HISTORY: pre op pending ureteroscopy, laser lithotripsy. Hypertension COMPARISON: Abdomen 1 View (KUB) dated 11/23/2022; Abdomen 1 View (KUB) dated 11/24/2021; Abdomen 1 Vi ew (KUB) dated 08/17/2018; Chest Pa And Lat (2 Views) dated 02/14/2018 TECHNIQUE: PA and lateral views of the chest were obtained. FINDINGS: The lungs are clear. Heart size is normal and central vasculature is within normal limits. No pleural effusion or pneumothorax seen. No acute bony finding noted. IMPRESSION: No acute cardiopulmonary process.
[2023-03-21] MEDS ORDERED: FENTANYL CITR 100 MCG/2 ML ONE (08:08)
[2023-03-21] MEDS ORDERED: LIDOCAINE 1% MPF 5 ML VIAL ONE (08:08)
[2023-03-21] MEDS ORDERED: propofoL 200 MG/20 ML VIAL IV ONE (08:08)
[2023-03-21] MEDS ORDERED: AMPICILLIN SODIUM 2 GM/VIAL VIAL ONE (08:29)
[2023-03-21] MEDS ORDERED: Ringers Lactate 1,000 ML IV ONE (08:29)
[2023-03-21] MEDS ORDERED: Gentamicin Inj 240 MG in NA CHLORIDE 0.9% 100 ML IVPB ONE (09:00)
[2023-03-21] MEDS ORDERED: EPHEDRINE SULF 50 MG/ML VIAL ONE (09:29)
[2023-03-21] MEDS ORDERED: Mastisol Adhesive Liq ONE ×2 (09:58→09:59)
--- NOTE | 2023-03-21 10:03 | RAD REPORT ---
EXAM DESCRIPTION: RAD - Urethrocystogrphy Retrograde - 03/21/2023 9:57 am CLINICAL HISTORY: RT STENT COMPARISON: No comparisons FINDINGS: Total fluoro time: 0.31 minutes
[2023-03-21] MEDS ORDERED: CODEINE 30MG/APAP 300MG TAB PO PRN (10:33)
[2023-03-21] MEDS ORDERED: PHENAZOPYRIDINE 100MG TAB PO ONE (10:33)
[2023-03-21 12:40] VITALS: BP 102/89; TEMP 97.9; O2SAT 100
--- NOTE | 2023-03-22 08:14 | OP ---
Surgeon: TREVOR HOPE Preoperative Diagnosis: Right nephrolithiasis. Postoperative Diagnoses: 1.Right nephrolithiasis. 2.Ortega plaques. 3.Benign prostate hypertrophy with lower urinary tract obstruction and symptoms. Principal Procedures: 1.Cystoscopy. 2.Right retrograde pyelography. 3.Right ureteroscopy with laser lithotripsy. 4.Right ureteral stent placement. Findings: Ortega plaques in the area where a CT suspected an approximately 1 cm renal calculus and additional 1-2 mm calculi within the upper pole. BPH with intravesically projecting median lobe with right lateral sulcus and otherwise interdigitating lateral lobar hypertrophy. Indication For Procedure: Mr. Story is a recurrent stone former, who presented with evidence of an over 1 cm right renal calculus that was imperceptible on KUB. In an effort to decrease his risk of future stone forming event, he elected to proceed with surgical therapy. Procedure In Detail: The patient was consented in the preoperative holding area before being transfe rred to the operative suite where general anesthesia was induced. He was given IV antimicrobial prop hylaxis and pneumo boots were provided for DVT prophylaxis. He was placed in the lithotomy position, padded and secured to the table appropriately, and his genitalia was prepped with Hibiclens before b eing draped in standard fashion. The case was begun using a 22-Pakistani rigid cystoscope to traverse t he urethra and into the bladder with ease. Significant elevation of the median bar was noted with in travesically projecting median lobe with right lateral sulcus, which I was able to use to lateralize the median lobe and visualize the right ureteral orifice, which was partially obscured by the intrave sically projecting median lobe. I thus cannulated the ureteral orifice using the tip of a Sensor wir e and a 5-Pakistani ureteral access catheter. A retrograde pyelogram was then performed. Right retrograde pyelography: Using a 70:30 mixture of Omnipaque and saline, contrast was injected via the lumen of the 5-Pakistani ur eteral access catheter and did propagate up the distal into the mid and proximal ureter without signs of obstruction. It did enter the renal pelvis and delineate the calices appropriate. I thus passed the Sensor wire up the 5-Pakistani ureteral access catheter and coiled it within the upper pole of the right kidney. I removed the 5-Pakistani ureteral access catheter and placed a dual-lumen catheter into the mid proximal ureter. I then passed a Bentson guidewire via the second lumen of the dual-lumen ca theter, coiling it alongside the Sensor wire in the upper pole of the kidney. After several minutes allowed to dilate the ureter with the dual-lumen catheter, I then removed the dual-lumen catheter and attempted to perform semi-rigid ureteroscopy over the Bentson guidewire, but it would not go and pas s the ureteral orifice. As a result, I removed the ureteroscope and passed an 11 x 13-Pakistani uretera l access sheath into the mid distal ureter and used this to gain access over the Bentson guidewire in to his collecting system. I then surveyed each of the calices directly and identified the presence o f some 1-2 mm calculi in the upper pole of the right kidney and an additional Ortega plaque in the m id and lower pole calyx without any significant sized stones noted. As a result, I utilized a 272 nm laser fiber at power settings of 0.8 joules and 15 hertz to fragment the 1-2 mm calculi that were ad herent to the papilla and released them to emanate outside using the ureteral access sheath, and I al so disrupted the calculi from beneath the mucosa with the Ortega plaques in the mid and lower pole c alices. Once this was done, I then injected contrast in an antegrade fashion to delineate each of th e calices and again surveyed each of the calices confirming fluoroscopically each had been visualized , and again, no additional significant sized stones were noted. As a result, I surveyed through the renal pelvis back into the proximal down into the mid and distal ureter, removing the ureteral access sheath on the way out, and I found no additional calculi. As a result, I backed the rigid cystoscop e over the Sensor wire and passed a 6-Pakistani x 26 cm double-J ureteral stent over that Sensor wire, c oiling it within the upper pole of the kidney fluoroscopically and cystoscopically within the bladder . The wire was left on its tether, and I decompressed his bladder of fluid and urine. I then secure d the tether of the stent to the glans penis using Mastisol and Steri-Strips. He was then awakened f rom general anesthesia, transferred to a stretcher, and then transferred to the recovery room in good condition. Complications: None. Discharge Disposition: He may follow up in the Urology Clinic on to have the tethered urete ral stent extracted, and he may be given a dose of Keflex for antimicrobial prophylaxis at the time o f the stent extraction. Subsequent followup should be established with me electively as he wishes to discuss his bothersome L UTS due to BPH and potential options for surgical management. He may best be scheduled for a transre ctal ultrasound volumetric assessment of the prostate to see if he might be a candidate for the UroLi ft. GATITO/NÉSTORL Voice ID: [id number] Report ID: [id number]
== END 2023-03-21 11:26 | disposition home or self-care (01) ==
LOC: OR 07:42
PROVIDERS: ATTEND Urology
PROC: 0T768DZ Dilation of Right Ureter with Intraluminal Device, Via Natural or Artificial Opening Endoscopic (ICD-10-PCS; 2023-03-21)
PROC: 0TF38ZZ Fragmentation in Right Kidney Pelvis, Via Natural or Artificial Opening Endoscopic (ICD-10-PCS; principal; 2023-03-21 09:15)
DX: N20.0 Calculus of kidney (principal); N40.1 Benign prostatic hyperplasia with lower urinary tract symptoms; Z88.2 Allergy status to sulfonamides; Z88.8 Allergy status to other drugs, medicaments and biological substances; E03.9 Hypothyroidism, unspecified; I10 Essential (primary) hypertension; J44.9 Chronic obstructive pulmonary disease, unspecified
CPT/HCPCS: 87088; 85025; 87086; 80048; 36415; 85610; 87077; 87186; 71046; 74450; 51610; 52356; J2704; J2001; J1580; J3010; J0290; J7120